=== PATIENT | female | born 1990 | race Caucasian/White ===

== ENCOUNTER → 2017-05-02 10:20 | Outpatient (CLI) | payer OTHER, SELFPAY ==
[2017-05-04 07:48] LABS: HPV Reflexed? NOT INDICATED
== END ==
PROVIDERS: Family Provider Family Medicine; PCP Family Medicine; Visit Provider Obstetrics & Gynecology
DX: Z12.4 Encounter for screening for malignant neoplasm of cervix (principal)
CPT/HCPCS: 88175; G0145

== ENCOUNTER → 2017-05-19 11:38 | Outpatient (CLI) | payer OTHER, SELFPAY ==
[2017-05-19 14:31] LABS: hCG Titer Quant., Serum 51 mIU/mL (<9 non-preg)
== END ==
PROVIDERS: Visit Provider Obstetrics & Gynecology
DX: O20.0 Threatened abortion (principal); Z32.01 Encounter for pregnancy test, result positive; Z3A.00 Weeks of gestation of pregnancy not specified
CPT/HCPCS: 36415; 84702

== ENCOUNTER → 2017-05-23 10:55 | Outpatient (CLI) | payer OTHER, SELFPAY ==
[2017-05-23 12:25] LABS: hCG Titer Quant., Serum 402 mIU/mL (<9 non-preg)
== END ==
PROVIDERS: Visit Provider Obstetrics & Gynecology
DX: O20.0 Threatened abortion (principal); Z32.01 Encounter for pregnancy test, result positive; Z3A.00 Weeks of gestation of pregnancy not specified
CPT/HCPCS: 36415; 84702

== ENCOUNTER → 2017-06-10 13:58 | Outpatient (CLI) | payer OTHER, SELFPAY ==
[2017-06-10 17:46] LABS: Chlamydia Trachomatis by PCR Negative (Negative); Neisserai gonorrhoeae by PCR Negative (Negative); Probe Check PASS; Sample Adequacy Control PASS; Specimen Processing Control PASS
== END ==
PROVIDERS: Visit Provider Obstetrics & Gynecology
DX: Z32.01 Encounter for pregnancy test, result positive (principal); Z11.3 Encounter for screening for infections with a predominantly sexual mode of transmission
CPT/HCPCS: 87491; 87591

== ENCOUNTER → 2017-06-22 16:10 | Outpatient (CLI) | payer OTHER, SELFPAY ==
[2017-06-22 17:46] LABS: Absolute Lymphocyte Count 0.99 X10^3/ul (0.83-4.51); Absolute Neutrophil Count 5.1 X10^3/uL (2.0-7.7); Basophil# 0.01 X10^3/uL; Basophil% 0.2 % (0-1); Eosinophil# 0.05 X10^3/uL; Eosinophils% 0.8 % (0-5); Hematocrit 35.5 % (37-47); Hemoglobin 11.3 g/dl (12.0-15.0); Lymphocyte # 0.99 X10^3/ul (4.0); Lymphocyte % 15.3 % (19-41); Mean Corp Hgb Conc 31.8 g/gl (32-36); Mean Corpuscular Hgb 26.7 pg (27.0-32.0); Mean Corpuscular Volume 83.9 fL (81-99); Mean Platelet Vol. 11.5 fl (6.2-12.0); Monocyte% 4.6 % (0-10); Neutrophil # 5.12 X10^3/uL (2.7-7.7); Neutrophil % 79.1 % (47-70); POSITIVE COUNT NO; POSITIVE DIFFERENTIAL NO; POSITIVE MORPHOLOGY NO; Platelet Count 210 K/mm3 (150-450); RBC Distribution Width CV 14.8 % (11.6-14.6); RBC Distribution Width SD 45.3 fl (35.1-43.9); Red Blood Count 4.23 M/mm3 (4.2-5.4); White Blood Count 6.5 K/mm3 (4.4-11.0)
[2017-06-22 17:50] LABS: Color, Urine Yellow (Yellow); Glucose, Dipstick Normal (Normal); Ketone-Dipstick Negative (Negative); Leukocyte Esterase-Dipstick Negative /ul (Negative); Nitrite-Dipstick Negative (Negative); Occult Blood-Urine Negative /ul (Negative); Protein-Dipstick Negative (Negative); Specific Gravity, Urine 1.015 (1.002-1.030); Urine Bilirubin Dipstick Negative (Negative); Urine Clarity Clear (Clear); Urine Urobilinogen Normal (Normal)
[2017-06-22 18:08] LABS: Amphetamine Urine VISTA NEGATIVE (<1000 ng/mL); Barbiturate Urine VISTA NEGATIVE (< 200 ng/mL); Benzodiazepine Urine VISTA NEGATIVE (< 200 ng/mL); Cocaine Urine VISTA NEGATIVE (< 300 ng/mL); Ecstacy Urine VISTA NEGATIVE (< 500 ng/mL); Methadone Urine VISTA NEGATIVE (< 300 ng/mL); PCP Urine VISTA NEGATIVE (< 25 ng/mL); THC Urine VISTA NEGATIVE (< 50 ng/mL); Thyroid Stim Hormone (TSH) 2.53 uIU/mL (0.358-3.74); Vista UDS pH Range 5
[2017-06-22 18:09] LABS: COTININE Drug Screen Negative (<200 ng/mL)
[2017-06-22 18:49] LABS: HIV - WCH Non-Reactive (Nonreactive); Rubella IgG 86.7 IU/mL
[2017-06-24 03:11] LABS: Prenatal RPR NONREACTIVE (NONREACTIVE)
[2017-06-24 09:09] LABS: HEPATITIS B SURFACE AG Negative (Negative); Hep C Antibodies <0.1 s/co ratio (0.0-0.9)
== END ==
PROVIDERS: Visit Provider Obstetrics & Gynecology
DX: Z34.81 Encounter for supervision of other normal pregnancy, first trimester (principal); Z3A.00 Weeks of gestation of pregnancy not specified
CPT/HCPCS: 36415; 80307; 81002; 84443; 85025; 86703; 86762; 86803; 87340

== ENCOUNTER 2017-08-05 06:54 | Outpatient (RCR) | payer OTHER, SELFPAY ==
--- NOTE | 2017-08-05 07:54 | HP.PTEVAL_ITS ---
Patient's Visit Information EMILEE GREEN is a 26 year old F referred to Physical Therapy by Camron Mendenhall with a diagnosis of vertigo. Date of Evaluation: 08/05/17 Physical Therapist: Pablo Storey DPT, OC - Visit Plan Frequency: 1x/Week Duration: 4-6 Weeks Plan: Treated with L Vanessa today. f/u in a week to recheck positional and progress to adaptation if needed. Monitor test results. - Subjective Subjective: I have vertigo. Not sure why. Diagnosed at ER 3 yrs ago but no real testing. Every couple months for 3 years get s lightheaded, nauseous and dizzy and blacks out for a couple minutes. No real pattern to it. It is more frequent now that she is 3-4 times per month. Has happened at work, doing laundry and once just lying down. Characterized as spinning and double vision and lightheadedness. OB(Dr. ordonez) sent to Dr Mendenhall who sent for PT. No real testing. Sleeping OK. Works at [employer] and is doing ok there. Home life is normal except when it happens and she takes it easy for a couple minutes. Hobbies: one year old girl. Has not come on when she is awake. No steps at home. No falls recently, can tell when it is coming on and can sit down. Last incident of blacking out 3 months ago, dizzyness is 3-4x per month and needs to sit down. - Objective L hallpike georgina slightly dizzy, R hallpike -, no nystagmus. Roll negative. treated with L Vanessa and post Avnessa instruction. Got dizzy again with R roll portion of treatment. Balance is good, slight dizzyness with horiz and vertical VOR walking but safe. Oculomotor: no nystagmus with gaze or head shake. - skew eye deviation. - head thrust. normal convergence. pursuit and saccades are nromal. VOR makes 5/10 dizzy for 25 seconds - Balance Scores Functional Gait Assessment Score: 30 % Disability: 0 CATSIB Score (Max score 120 seconds): 120 - Goals Goal 1:: Abolish dizzyness for period of 3 weeks. Goal Time Frame: 4-6 Weeks Goal 2:: Pt feel dizzyness abolished Goal Time Frame: 4-6 Weeks - Rehabilitation Potential Physical Therapy Diagnosis: questionable BPPV. Not obvious that this is a vestibualr problem, especially the blackouts, but possible and will treat as she is going through other testing. Rehabilitation Potential: Questionable - Anticipated Interventions Patient/Client Instruction: Educate patient on: Condition Other: to abolish dizzyness. Comment: adaptation and positional treatments as helpful. Other: to abolish dizzyness. Thank you for the opportunity to evaluate your patient. For Medicare and Medicare HMO plans, please review the plan of care and approve it. It will need to be FAXED BACK to us at [phone] for Medicare purposes. Please let me know if there are questions or concerns regarding this plan of care. Physician Signature: Date:
--- NOTE | 2017-11-10 12:33 | HP.PT.NRP ---
HP - Discharge Summary (1) - Patient Information EMILEE GREEN was seen in my office for initial evaluation on 08/05/17. The following Plan of Care was established for this patient: Initial Frequency: 1x/Week Initial Duration: 4-6 Weeks - Anticipated Interventions Patient/Client Instruction: Educate patient on: Condition Other: to abolish dizzyness. Other: to abolish dizzyness. This patient was last seen in our office 08/05/17. Pertinent comments regarding their Physical therapy will appear below: Pt seen for evaluation and positional treatment. Plan of care established but patient did not attend any further visits. I will discontinue at this time as it has been 3 months. At this point I will be discontinuing this patient from physical therapy. I would be happy to see this patient again in the future if found appropriate by the physician. Thank you! Pablo Storey, DPT, OC
== END 2017-08-05 19:00 | disposition home or self-care (01) ==
LOC: PT 06:54
PROVIDERS: Family Provider Family Medicine; PCP Family Medicine; Visit Provider Psychiatry & Neurology Neurology
DX: R42 Dizziness and giddiness (principal)
CPT/HCPCS: 97162

== ENCOUNTER → 2017-09-12 15:03 | Outpatient (CLI) | payer OTHER, SELFPAY ==
--- NOTE | 2017-09-12 15:03 | DT_ITS ---
This patient was seen during an EMR downtime September 05, 2017 - September 12, 2017. This patient may have a combination of paper and electronic documentation or all paper documentation. All documentation is viewable within the e-chart portion of [employer] for each patient visit.
== END ==
PROVIDERS: Visit Provider Obstetrics & Gynecology
DX: O23.42 Unspecified infection of urinary tract in pregnancy, second trimester (principal); Z3A.00 Weeks of gestation of pregnancy not specified
CPT/HCPCS: 87086; 87088

== ENCOUNTER → 2017-11-03 10:11 | Outpatient (CLI) | payer OTHER, SELFPAY ==
[2017-11-03 10:52] LABS: Hematocrit 31.8 % (37-47); Hemoglobin 10.5 g/dl (12.0-15.0); Mean Corpuscular Hgb 29.2 pg (27.0-32.0); Mean Corpuscular Volume 88.6 fL (81-99); Platelet Count 184 K/mm3 (150-450); RBC Distribution Width CV 15.1 % (11.6-14.6); RBC Distribution Width SD 48.4 fl (35.1-43.9); Red Blood Count 3.59 M/mm3 (4.2-5.4); White Blood Count 6.2 K/mm3 (4.4-11.0)
[2017-11-03 10:58] LABS: Glucose Challenge Gest 1H 50g 82 mg/dL (70-140)
[2017-11-03 10:59] LABS: Scan Indicated on CBC? Y/N NO
== END ==
PROVIDERS: Visit Provider Obstetrics & Gynecology
DX: Z34.83 Encounter for supervision of other normal pregnancy, third trimester (principal)
CPT/HCPCS: 36415; 82950; 85027; 86850

== ENCOUNTER 2017-12-11 11:05 | Outpatient (CLI) | payer OTHER, SELFPAY ==
[2017-12-11 11:39] VITALS: BMI 38.5
[2017-12-11 11:42] LABS: Bacteria 0 SEEN /hpf (None Seen); Mucous, Urine 0 SEEN /hpf (<or=2+); Red Blood Cells-Urine 0 SEEN /hpf (0-5); White Blood Cells 0 SEEN /hpf (0-5)
[2017-12-11 11:47] LABS: Color, Urine Yellow (Yellow); Glucose, Dipstick Normal (Normal); Ketone-Dipstick Negative (Negative); Leukocyte Esterase-Dipstick 25 /ul (Negative); Nitrite-Dipstick Negative (Negative); Occult Blood-Urine Negative /ul (Negative); Protein-Dipstick Negative (Negative); Specific Gravity, Urine 1.015 (1.002-1.030); Urine Bilirubin Dipstick Negative (Negative); Urine Clarity Sl. Cloudy (Clear); Urine Urobilinogen Normal (Normal); Urine pH 6.5 (5.0 - 8.0)
[2017-12-11 11:53] LABS: Squamous Epithelial Cells - UA 0-5 SEEN /hpf (5-10)
--- NOTE | 2017-12-12 07:24 | OB.TRI.NOTE ---
History of Present Illness Date of Service: 12/11/17 Was patient seen by the physician?: No Reason For Visit: RULE OUT LABOR Date of Service: 12/11/17 Final ELMER: 01/28/18 Final ELMER Source: LMP Gestational age: 33 Weeks and 2 Days History of Present Illness: Reports back and pelvic pain. No signs of PPROM. No bleeding or contraction pain. Allergies No Known Allergies Allergy (Verified 10/24/17 15:21) - Pertinent Past Medical History Medical History: Past Medical History (Last Updated 10/24/17 @ 15:25 by Ale Boone) Asthma Migraines SOB (shortness of breath) Weight loss Surgical History: Past Surgical History (Last Updated 10/24/17 @ 15:25 by Ale Boone) Hx of hand surgery Physical Exam General: Alert, Oriented x3, Cooperative, No apparent distress Abdomen: Soft, Non Tender, Non-Distended, Gravid, Appropriate for Gestational Age Extremities:: No edema Neurological: Neuro grossly intact LIEUTENANT GENERAL: Normal external genitalia Estimated gestational size: Appropriate for gestational size Presentation: Cephalic NST - FHR Rate Baby A Baseline: 130s Variability:: Moderate Accelerations:: 15 x 15 Decelerations:: None NST Reactive:: Yes, Appropriate for gestational age FHR Category:: Category I Uterine Activity:: none Impression/Plan No findings to suggest labor. FFN negative. UA negative. Reassuring FHR tracing. f/u in office.
== END 2017-12-11 12:15 | disposition home or self-care (01) ==
LOC: WPOUT 11:19 → WP 11:20
PROVIDERS: Family Provider Family Medicine; PCP Family Medicine; Visit Provider Obstetrics & Gynecology
DX: Z34.93 Encounter for supervision of normal pregnancy, unspecified, third trimester (principal); R10.2 Pelvic and perineal pain; M54.9 Dorsalgia, unspecified; Z3A.33 33 weeks gestation of pregnancy
CPT/HCPCS: 59025; 59050; 81001; 99218; G0378

== ENCOUNTER → 2017-12-27 14:34 | Outpatient (CLI) | payer OTHER, SELFPAY | PROVIDERS: Family Provider Family Medicine; PCP Family Medicine; Referring Provider Physician Assistant Surgical; Visit Provider Physician Assistant Surgical | DX: J02.9 Acute pharyngitis, unspecified (principal) | CPT/HCPCS: 87081 ==

== ENCOUNTER → 2017-12-30 13:01 | Outpatient (CLI) | payer OTHER, SELFPAY ==
[2017-12-30 14:45] LABS: Group B Strep DNA By PCR Negative (Negative); Internal Control PASS; Probe Check PASS; Specimen Processing Control PASS
== END ==
PROVIDERS: Visit Provider Obstetrics & Gynecology
DX: Z36.85 Encounter for antenatal screening for Streptococcus B (principal)
CPT/HCPCS: 87081; 87653

== ENCOUNTER 2018-01-20 10:00 | Inpatient (IN) | payer OTHER, SELFPAY ==
[2018-01-19 08:59] VITALS: BMI 40.2
[2018-01-19 10:02] LABS: Prothrombin Time (Protime)PT. 13.2 SECONDS (11.7-14.9)
[2018-01-19 10:11] LABS: Absolute Lymphocyte Count 1.19 X10^3/ul (0.83-4.51); Absolute Neutrophil Count 3.6 X10^3/uL (2.0-7.7); Basophil# 0.01 X10^3/uL; Basophil% 0.2 % (0-1); Eosinophil# 0.04 X10^3/uL; Eosinophils% 0.8 % (0-5); Hematocrit 34.3 % (37-47); Hemoglobin 11.6 g/dl (12.0-15.0); Lymphocyte # 1.19 X10^3/ul (4.0); Lymphocyte % 23.4 % (19-41); Mean Corp Hgb Conc 33.8 g/gl (32-36); Mean Corpuscular Hgb 30.4 pg (27.0-32.0); Mean Corpuscular Volume 89.8 fL (81-99); Mean Platelet Vol. 11.9 fl (6.2-12.0); Monocyte# 0.29 X10^3/uL; Monocyte% 5.7 % (0-10); Neutrophil # 3.55 X10^3/uL (2.7-7.7); Neutrophil % 69.7 % (47-70); Platelet Count 127 K/mm3 (150-450); RBC Distribution Width CV 15.3 % (11.6-14.6); RBC Distribution Width SD 49.6 fl (35.1-43.9); Red Blood Count 3.82 M/mm3 (4.2-5.4); White Blood Count 5.1 K/mm3 (4.4-11.0)
[2018-01-19 10:14] LABS: POSITIVE COUNT NO; POSITIVE DIFFERENTIAL NO; POSITIVE MORPHOLOGY NO
[2018-01-20] VITALS (26 sets, daily range): BP systolic 100–146; BP diastolic 48–94; PULSE 66–110; RESP 16–20; TEMP 36.1–36.9; O2SAT 95–99; BMI 40.6
[2018-01-20] MEDS: Lactated Ringers 1,000 ML 999 ML IV (10:20)
[2018-01-20] MEDS: Lactated Ringers 1,000 ML 150 ML IV (10:58)
[2018-01-20] MEDS: Cefazolin 2 GM in 0.9% Normal Saline 100 ML IV (11:52)
[2018-01-20] MEDS: Sodium Citrate/Citric Acid 30 ML UDC PO (11:52)
--- NOTE | 2018-01-20 12:07 | DCINST_ITS ---
Discharge Diet: No Restrictions Discharge Activity: Return to Normal Activity, May Not Drive, May not drive while taking narcotic pain medications., May Shower Return to work on:: 03/20/18 May resume sexual activity in: 4-6 weeks Call your doctor if your incision/area has: Sudden Increased Bleeding, Increased Pain/ Swelling, Increased Redness, Foul Smelling Discharge, Swelling at the incision site Call your doctor if you observe: Fever of 101 or Higher, Inability to urinate, Inability to have a bowel movement, Using more than one pad per hour, Shortness of breath, Chest pain, Calf discomfort, Uncontrolled pain Remove Dressing in (days):: 2 Cleanse incision/area with: Soap & Water Additional Instructions: If you experience any of the following, contact your healthcare provider. * Bleeding that soaks a pad every hour for 2 hours * Fever 100.4 or higher * Unrelieved incision or abdominal pain * Swelling, redness, discharge or bleeding from your incision or episiotomy site * Your incision begins to separate * Problems urinating (including inability to urinate or burning while urinating). * Visual changes * Severe headache * Flu-like symptoms * Pain or redness in one of both of your breasts * Pain, warmth, tenderness or swelling in your legs, especially the calf area * Frequent nausea and vomiting * Symptoms of depression or anxiety If you experience any of the following, call 911 or go to the nearest Emergency Room. * Chest pain * Problems breathing * Seizure activity * Partial or complete paralysis of a body part, slurred speech, weakness or drooping of the face, or a sudden inability to walk or hold your balance Allergies/Adverse Reactions: Allergies No Known Allergies Allergy (Verified 12/27/17 11:20) Medications to take at Discharge Vits [Prenatabs FA ] 1 tab PO DAILY 09/25/15 docusate sodium 100 mg capsule 100 mg PO BID 30 Days #60 10/24/17 linaclotide 145 mcg capsule 145 mcg PO DAILY 10/24/17 Sertraline HCl [Zoloft] 50 mg PO DAILY 12/11/17 Ferrous Gluconate 325 mg PO DAILY@0800 01/19/18 Ibuprofen 600 mg PO Q6H PRN PRN #30 tab 01/20/18 Oxycodone [Oxyir] 5 - 10 mg PO Q4H PRN PRN 7 Days #28 tab 01/20/18 The following prescriptions were given: Oxycodone [Oxyir] 5 - 10 mg PO Q4H PRN PRN 7 Days #28 tab PRN Reason: Mod-Severe Pain (4-01/11) Ibuprofen 600 mg PO Q6H PRN PRN #30 tab PRN Reason: pain or cramping Follow-Up: Call to make an appointment with your doctor for an incision check in 1-2 weeks. You will also need a 6 week post- follow up appointment. Test results from this visit will be discussed in further detail at your follow- up appointment, if applicable. Please Follow Up With: Raghu Gomez MD When: one week Proposed Discharge Date: 01/22/18
--- NOTE | 2018-01-20 12:07 | PCM.OPRPT ---
Problem List (1) Previous section Status: Chronic Report of Operation Date of Procedure: 01/20/18 Pre-Operative Diagnosis: Previous Section Post-Operative Diagnosis: Same Surgery/Procedure Performed:: Repeat Low Transverse Section Description of Surgical Findings:: Normal appearing uterus, ovaries, and fallopian tubes. Live female weighing 8lb6oz. APGARs 9/9. Minimal scarring present. final finisher forging dies: Ronal Carter Type of Anesthesia:: Spinal Anesthesiologist: Frank Lim Special Medications: none Specimen's removed: cord blood for typing Drains: kerns Estimated Blood Loss (mL): 600cc Fluids Replaced: 1500cc LR Description of Procedure: Cristy was taken to the OR with IV running. She was given two grams of Ancef intravenously for surgical prophylaxis. SCDs were in place and operational throuhout the case. Spinal anesthesia was introduced without complication. A kerns catheter was placed. She was then prepped and draped in the supine position with a leftward tilt. Once anesthesia was deemed adequate a Phanneseil incision was made through the previous scar. The underlying subcutaneous tissue was dissected down to the level of fascia with sharp and blunt dissection. The fascia was then incised horizontally in the midline. This incision was entered bilaterally using the Acosta scissors. The upper portion of the fascial defect was then grasped with two Elfego clamps elevated and the underlying rectus muscles dissected off with blunt and sharp dissection. The rectus muscles were dissected off the lower fascial defect in a similar fashion. The rectus muscles were then in the midline, the peritoneum identified and entered sharply. This defect was enlarged using blunt retraction. A bladder blade was then placed. A bladder flap was created using sharp and blunt dissection. The bladder blade was replaced. A transverse incision was then made in the lower uterine segment and once the cavity was entered the uterine defect was extended using blunt lateral and superior traction. The baby's head was then delivered atraumatically followed by the body. The nose and mouth were suctioned with a bulb suction. Delayed cord clamping was employed. There was an active cry within one minute of delivery. The cord was then clamped and cut. The baby was then handed off to the waiting nurse for evaluation. The placenta was then delivered manually, the uterus exteriorized, and cleared of all clot and membranes. The uterine defect was then closed in two layes with #1 Vicryl suture. The posterior cul de sac was cleared of all clot and fluid. The uterus returned to the abdomen. The uterine incision was inspected and found to be hemostatic. The gutters were then cleared of all clot and fluid. The peritoneum was closed with 2-0 Vicryl. The rectus muscles were reapproximated with 0-Vicryl. The fascia was closed with a running stitch of #1 Stratofix suture. The subcutaneous tissue was closed with a running stitch of 2-0 Vicryl. The skin was closed with a running stitch of 4-0 Monocryl. Sponge, lap, needle, and instrument counts were correct. She was taken to the recovery room in stable condition. Grafts/Implants Used: Julee - Complications none - Admit VTE Documentation VTE Present on Admission: No VTE Mechan Device Prophylaxis: SCD's VTE Pharm Prophylaxis ordered?: No
--- NOTE | 2018-01-20 12:18 | OP.PCM_ITS ---
- Problem List (1) Previous section Status: Chronic Delivery Classification: Scheduled Final ELMER: 01/27/18 Final ELMER Source: US <20 weeks Gestational age: 39 Weeks and 0 Days Indications for : Repeat Elective Description of Procedure: Normal appearing uterus, ovaries, and fallopian tubes. Delivery of a live female , APGARs 9/9. weight 8lb6oz. Minimal scarring present. Amniotic Membrane Rupture Type: Artificial Amniotic Fluid Description: Clear Specimen(s) sent to pathology: cord blood for typing Drain: Leon to straight drain Fluids Replaced: 1500cc LR Cord Entanglement: None Nuchal Cord Compression: Without compression Cord Vessel Description: 3 Vessels Esitmated Blood Loss (ml): 600cc Gender: Female (1 minute): 9 (5 minute): 9 Pre-op Antibiotic Given: Ancef 2 grams IV x1 Pt instructed on risks of surgery: Bleeding, Infection, Need for Future C- Sections, Injury to surrounding structure(s) including bowel and bladder Complications: None - Admit VTE Documentation VTE Present on Admission: No VTE Mechan Device Prophylaxis: SCD's VTE Pharm Prophylaxis ordered?: No
[2018-01-20] MEDS: Oxytocin 30 units/NS 500 ml 30 UNITS/500 ML IV.SOLN 167 UNITS IV (12:35)
[2018-01-20] MEDS: Ketorolac 30 MG/ML Syringe IV ×2 (13:08→18:06)
[2018-01-20] MEDS: Ondansetron 4 MG/2 ML Vial IV (14:02)
[2018-01-20] MEDS: Lactated Ringers 1,000 ML 100 ML IV ×2 (14:09→19:46)
[2018-01-20] MEDS: proMETHazine 25 MG/ML Syringe 12.5 MG IV (15:41)
[2018-01-20] MEDS: Nalbuphine 10 MG/ML Ampul 5 MG IV (16:20)
[2018-01-20] MEDS: Cefazolin 1 GM/50 ML BAG IV (19:46)
--- NOTE | 2018-01-20 21:26 | NURSING ---
pt up to restroom without difficulty. a few egg sized clots noted to peripad. pericare and pad change. pt returned to bed without difficulty. once in bed pt appeared pale. fundus noted to be 1 finger breadth above umbilicus and small gush of bright red lochia noted upon fundal assessment. vital signs obtained (see vital sign intervention) HR ranged from 90's to 117. peripad from 1929 and 2119 weighted for 354ml. pt drank some ice tea and reported feeling better. pt now appears pink and is asymptomatic. fob present and supportive. will continue to monitor
[2018-01-20] MEDS: miSOPROStol 200 MCG Tablet 400 MCG RECTAL (22:18)
[2018-01-20] MEDS: Oxytocin 30 units/NS 500 ml 30 UNITS/500 ML IV.SOLN 100 UNITS IV (22:19)
[2018-01-20] MEDS: Methylergonovine 0.2 MG/ML Ampul IM (22:56)
--- NOTE | 2018-01-20 23:04 | PCM.PN.OB ---
Subjective: Called to see patient regarding increased vaginal bleeding. Specifically, the patient has lost approximately 750 cc of clots over the last 2 hours. Abdomen is soft and nontender without any evidence of distention. Urine output is adequate but marginal. Heart rate is in the 80s and 90s and blood pressures for the most part are normal with a single blood pressure of approximately 100/60. Patient was given a Pitocin bolus in the last hour and Cytotec 400 mg rectally was given about an hour ago as well. She then passed the some clot which is included in the 750 cc calculation above. Upon presentation to the patient's room, the patient was noted to be laying on her back and no vaginal bleeding was noted. Uterine fundus palpated to 2 cm below the umbilicus and was firm. Given this, will continue Cytotec 400 mg rectally every 4 hours and continue a Pitocin drip overnight. A single dose of Methergine was given and will repeat as needed over the next 6 hours. If this is inadequate we will move to Hemabate. Given the current blood loss is only 750 cc, will hold off checking a hemoglobin until the morning unless bleeding continues. Will start a second IV line and if bleeding increases will need to order a type and cross for 2 units of packed red blood cells. Otherwise, continue to monitor closely. Will maintain IV fluids at a total of 150 cc/h. Will hold a.m. Toradol due to urine output being slightly low. Anticipate being able to resume this in the morning. - Physical Exam Vital Signs Temp Pulse Resp BP Pulse Ox 97.1 F L 110 H 16 108/66 97 01/20/18 21:26 01/20/18 22:26 01/20/18 22:26 01/20/18 22:21 01/20/18 22:26 Oxygen Delivery Method Room Air Weight: 244 lb 7.882 oz Body Mass Index (BMI) 40.6 Intake and Output for Last 24 Hours 01/18/18 01/19/18 01/20/18 23:59 23:59 23:59 Intake Total 1800 / 1800 Output Total 1550 / 1550 Balance 250 / 250 Laboratory Tests Past 24 Hrs 01/20/18 18:10 Screen NEGATIVE Baby's Blood Type O POSITIVE Baby's ERIK NEGATIVE Medical Necessity - Tobacco Use Smoking Status: Former smoker Assessment/Plan All Active Problems (Last Reviewed 12/27/17 @ 11:21 by Romina Liu) Pharyngitis, acute (Acute) Sinusitis, acute (Acute)
--- NOTE | 2018-01-20 23:13 | NURSING ---
2234 RN in room, pt reported feeling a gush of blood, fundus assessed, noted to be 1 fingerbreath above umbilius and firm, expressed large clots and continuous trickle of rubra lochia noted 2236 mold dumper called 2237 discharge door operator into room, peripads changed and weighted for a total of 901ml 2240 called and updated, on way to unit 2249 in room, assessed pt, new orders received for IM methergine now and to run pitocin at 50ml/hr over night, to start another IV line, and to give 400mg rectal cytotec Q 4 hours x3 doses 225 methergine to right thigh 230 out of room, remains on unit 2311 back in room, assessed pt 2312 out of room, off unit 2319 20 G IV started to right AC 2321 peripad totals added for a total EBL since 1929 1255, called and updated, new orders received for H & H 2325 fundus boggy, firm with massage, saturated peripad, called and updated. new orders to type and cross 2 units and to give IM Hemabate 2329 Hemabate given to left thigh 2338 peripad and green bed pad changed = 260ml for a total of 1515 since 1929
[2018-01-20] MEDS: 0.9% Saline Lock 10 ML Syringe IV (23:20)
[2018-01-20] MEDS: Carboprost Tromethamine 250 MCG/ML Ampul IM (23:29)
[2018-01-21] VITALS (16 sets, daily range): BP systolic 104–141; BP diastolic 66–87; PULSE 80–101; RESP 16–18; TEMP 36.2–37.1; O2SAT 97–100
[2018-01-21 00:18] LABS: Hematocrit 25.8 % (37-47); Hemoglobin 8.7 g/dl (12.0-15.0); Mean Corp Hgb Conc 33.7 g/gl (32-36); Mean Corpuscular Hgb 30.7 pg (27.0-32.0); Mean Corpuscular Volume 91.2 fL (81-99); Mean Platelet Vol. 12.3 fl (6.2-12.0); Platelet Count 107 K/mm3 (150-450); RBC Distribution Width CV 15.6 % (11.6-14.6); RBC Distribution Width SD 51.2 fl (35.1-43.9); Red Blood Count 2.83 M/mm3 (4.2-5.4); White Blood Count 11.3 K/mm3 (4.4-11.0)
[2018-01-21 00:19] LABS: Scan Indicated on CBC? Y/N NO
--- NOTE | 2018-01-21 00:45 | NURSING ---
0045 pericare and pad change. peripad weighed=68ml
[2018-01-21] MEDS: Oxytocin 30 units/NS 500 ml 30 UNITS/500 ML IV.SOLN 50 UNITS IV (01:03)
[2018-01-21] MEDS: miSOPROStol 200 MCG Tablet 400 MCG RECTAL ×3 (02:03→11:40)
--- NOTE | 2018-01-21 02:14 | NURSING ---
0200 pericare and pad change. pad weighs 34ml
--- NOTE | 2018-01-21 02:15 | NURSING ---
from [id number] during hemorrhage and recovery, pt remained awake alert and oriented
[2018-01-21] MEDS: Cefazolin 1 GM/50 ML BAG IV (03:55)
[2018-01-21] MEDS: Lactated Ringers 1,000 ML 100 ML IV (05:37)
[2018-01-21 06:07] LABS: Hematocrit 22.6 % (37-47); Hemoglobin 7.6 g/dl (12.0-15.0); Mean Corp Hgb Conc 33.6 g/gl (32-36); Mean Corpuscular Hgb 30.9 pg (27.0-32.0); Mean Corpuscular Volume 91.9 fL (81-99); Mean Platelet Vol. 11.3 fl (6.2-12.0); Platelet Count 88 K/mm3 (150-450); RBC Distribution Width CV 15.3 % (11.6-14.6); RBC Distribution Width SD 49.2 fl (35.1-43.9); Red Blood Count 2.46 M/mm3 (4.2-5.4); Scan Indicated on CBC? Y/N NO; White Blood Count 9.4 K/mm3 (4.4-11.0)
--- NOTE | 2018-01-21 09:57 | PCM.PN.OB ---
Subjective: Patient without complaint. Tolerating diet well. Denies orthostatic changes. Pain well controlled. Minimal vaginal bleeding now. - Physical Exam Vital Signs AF, VSS Temp Pulse Resp BP Pulse Ox 98.3 F 90 16 104/66 100 01/21/18 08:37 01/21/18 08:37 01/21/18 08:37 01/21/18 08:37 01/21/18 08:37 Oxygen Delivery Method Nasal Cannula Weight: 244 lb 7.882 oz Body Mass Index (BMI) 40.6 Intake and Output for Last 24 Hours 01/19/18 01/20/18 01/21/18 23:59 23:59 23:59 Intake Total 1800 / 1800 3866 / 3866 Output Total 1550 / 1550 1370 / 1370 Balance 250 / 250 2496 / 2496 Laboratory Tests Past 24 Hrs 01/19/18 01/20/18 01/20/18 09:40 18:10 23:20 WBC 11.3 H RBC 2.83 L Hgb 8.7 L Hct 25.8 L MCV 91.2 MCH 30.7 MCHC 33.7 RDW 15.6 H RDW Differential 51.2 H Plt Count 107 L MPV 12.3 H Screen NEGATIVE Baby's Blood Type O POSITIVE Baby's ERIK NEGATIVE Crossmatch See Detail 01/21/18 05:50 WBC 9.4 RBC 2.46 L Hgb 7.6 L Hct 22.6 L MCV 91.9 MCH 30.9 MCHC 33.6 RDW 15.3 H RDW Differential 49.2 H Plt Count 88 L MPV 11.3 Screen Baby's Blood Type Baby's ERIK Crossmatch Wound is clean, dry, intact. Excellent urine output. Hemoglobin okay and as expected after postoperative hemorrhage last evening for uterine atony. Medical Necessity - Tobacco Use Smoking Status: Former smoker Assessment/Plan All Active Problems (Last Reviewed 12/27/17 @ 11:21 by Romina Liu) Pharyngitis, acute (Acute) Sinusitis, acute (Acute) Doing well postoperative day #1 status post repeat followed by post operative hemorrhage for uterine atony. Continuing to follow closely. Will discontinue 1 of her IVs and Leon catheter this a.m. Other IV to saline lock. Will repeat CBC tomorrow to confirm stable.
[2018-01-21] MEDS: Linacolotide 145 MCG CAPSULE PO (11:39)
[2018-01-21] MEDS: Sertraline 50 MG Tablet PO (11:40)
[2018-01-21] MEDS: Ferrous Gluconate 324 MG Tablet 325 MG PO (11:40)
[2018-01-21] MEDS: Docusate Sodium 100 MG Capsule PO (11:43)
[2018-01-21] MEDS: 0.9% Saline Lock 10 ML Syringe IV (11:43)
[2018-01-21] MEDS: oxyCODONE 5 MG Tablet PO ×3 (13:52→22:12)
[2018-01-21] MEDS: Acetaminophen 500 MG Tablet 1000 MG PO (16:17)
[2018-01-22 02:00] VITALS: BP 141/89; PULSE 93; RESP 18; TEMP 36.2; O2SAT 100
[2018-01-22] MEDS: Acetaminophen 500 MG Tablet 1000 MG PO ×2 (02:01→11:50)
[2018-01-22] MEDS: oxyCODONE 5 MG Tablet PO ×3 (03:09→09:47)
[2018-01-22] MEDS: 0.9% Saline Lock 10 ML Syringe IV (03:10)
[2018-01-22 05:32] LABS: Absolute Lymphocyte Count 1.16 X10^3/ul (0.83-4.51); Absolute Neutrophil Count 6.2 X10^3/uL (2.0-7.7); Basophil# 0.01 X10^3/uL; Basophil% 0.1 % (0-1); Eosinophil# 0.03 X10^3/uL; Eosinophils% 0.4 % (0-5); Hematocrit 21.9 % (37-47); Hemoglobin 7.4 g/dl (12.0-15.0); Lymphocyte # 1.16 X10^3/ul (4.0); Lymphocyte % 14.8 % (19-41); Mean Corp Hgb Conc 33.8 g/gl (32-36); Mean Corpuscular Hgb 31.5 pg (27.0-32.0); Mean Corpuscular Volume 93.2 fL (81-99); Mean Platelet Vol. 11.1 fl (6.2-12.0); Monocyte# 0.42 X10^3/uL; Monocyte% 5.3 % (0-10); Neutrophil # 6.22 X10^3/uL (2.7-7.7); Neutrophil % 79.1 % (47-70); Platelet Count 107 K/mm3 (150-450); RBC Distribution Width CV 15.3 % (11.6-14.6); RBC Distribution Width SD 49.7 fl (35.1-43.9); Red Blood Count 2.35 M/mm3 (4.2-5.4); White Blood Count 7.9 K/mm3 (4.4-11.0)
[2018-01-22 06:07] LABS: POSITIVE COUNT NO; POSITIVE DIFFERENTIAL NO; POSITIVE MORPHOLOGY NO
--- NOTE | 2018-01-22 06:51 | NURSING ---
pt called RN into room. As this nurse entered room, pt was standing in restroom and reported passing a large blood clot when urinating. a tennis ball sized dark red clot noted in bottom of toilet. pt asymptomatic and returned to bed. fundus firm and 2 fingerbreadths below umbilicus, lochia small
[2018-01-22] MEDS: Prenatal Vits Tablet 1 TABLET PO (09:27)
[2018-01-22] MEDS: Sertraline 50 MG Tablet PO (09:27)
[2018-01-22] MEDS: Linacolotide 145 MCG CAPSULE PO (09:27)
[2018-01-22] MEDS: Docusate Sodium 100 MG Capsule PO (09:27)
[2018-01-22] MEDS: Ferrous Gluconate 324 MG Tablet 325 MG PO (09:28)
[2018-01-22 09:30] VITALS: BP 127/80; PULSE 100; RESP 16; TEMP 36.3; O2SAT 100
--- NOTE | 2018-01-22 11:31 | PN.OBGYN_ITS ---
Subjective: Patient without complaints. Tolerating diet well. Positive flatus. Denies orthostatic changes when up and about. Ready to go home. - Physical Exam Vital Signs AF, VSS Temp Pulse Resp BP Pulse Ox 97.4 F L 100 16 127/80 H 100 01/22/18 09:30 01/22/18 09:30 01/22/18 09:30 01/22/18 09:30 01/22/18 09:30 Oxygen Delivery Method Room Air Weight: 244 lb 7.882 oz Body Mass Index (BMI) 40.6 Intake and Output for Last 24 Hours 01/20/18 01/21/18 01/22/18 23:59 23:59 23:59 Intake Total 1800 / 1800 4465 / 4465 Output Total 1550 / 1550 2170 / 2170 Balance 250 / 250 2295 / 2295 Laboratory Tests Past 24 Hrs 01/22/18 05:25 WBC 7.9 RBC 2.35 L Hgb 7.4 L Hct 21.9 L MCV 93.2 MCH 31.5 MCHC 33.8 RDW 15.3 H RDW Differential 49.7 H Plt Count 107 L MPV 11.1 Immature Gran % (Auto) 0.300 Neut % (Auto) 79.1 H Lymph % (Auto) 14.8 L [place] % (Auto) 5.3 Eos % (Auto) 0.4 Baso % (Auto) 0.1 Absolute Neuts (auto) 6.2 Absolute Lymphs (auto) 1.16 Total Counted Not Reportable Wound is clean, dry, intact. Good urine output. Minimal vaginal bleeding. Hemoglobin stable. Platelet count increasing. Medical Necessity - Tobacco Use Smoking Status: Former smoker Assessment/Plan All Active Problems (Last Reviewed 12/27/17 @ 11:21 by Romina Liu) Pharyngitis, acute (Acute) Sinusitis, acute (Acute) Doing well postoperative day #3 status post hemorrhage for uterine atony. Will release to home with routine instructions.
--- NOTE | 2018-01-22 11:37 | DS.PCM_ITS ---
Discharge Summary Date of Admission: 01/19/18 Date of Discharge: 01/22/18 Summary: Procedure: Repeat low transverse cervical section HPI: Uneventful care. PE: Unremarkable. Hospital Course: The patient is a 27 year old who presented to [facility] at 39+ weeks gestation for repeat . Postoperatively she did well except for an episode of hemorrhage on postoperative day 0 due to uterine atony. IV Pitocin, IM Methergine and Hemabate were given to alleviate this problem. Patient's hemoglobin stabilized in the mid sevens with platelet count of approximately 88,000. She remained stable and demonstrated a stable HGB of 7.1 and platelet count just over 100,000 as well as bowel function on POD 3 at which time it was felt she was ready for discharge. She denied any orthostatic changes or symptoms at the time of discharge. Homegoing Instruction: She was instructed not to drive for several days or if using narcotic pain medication, not to put anything in the vagina for 4 weeks, not to lift >25 lbs for 6 weeks and to call the office for an appointment in 2 weeks and 6 weeks. Discharge Medications: She was given a prescription for Oxycodone and Colace and also plans to use Aleve or Motrin or Tylenol at home as needed for pain and constipation. She was also instructed to use iron at home for at least 6 weeks to recover her blood counts. - Physical Exam Vital Signs Temp Pulse Resp BP Pulse Ox 97.4 F L 100 16 127/80 H 100 01/22/18 09:30 01/22/18 09:30 01/22/18 09:30 01/22/18 09:30 01/22/18 09:30 Oxygen Delivery Method Room Air Weight: 244 lb 7.882 oz Body Mass Index (BMI) 40.6 Intake and Output for Last 24 Hours 01/20/18 01/21/18 01/22/18 23:59 23:59 23:59 Intake Total 1800 / 1800 4465 / 4465 Output Total 1550 / 1550 2170 / 2170 Balance 250 / 250 2295 / 2295 Laboratory Tests Past 24 Hrs 01/22/18 05:25 WBC 7.9 RBC 2.35 L Hgb 7.4 L Hct 21.9 L MCV 93.2 MCH 31.5 MCHC 33.8 RDW 15.3 H RDW Differential 49.7 H Plt Count 107 L MPV 11.1 Immature Gran % (Auto) 0.300 Neut % (Auto) 79.1 H Lymph % (Auto) 14.8 L [place] % (Auto) 5.3 Eos % (Auto) 0.4 Baso % (Auto) 0.1 Absolute Neuts (auto) 6.2 Absolute Lymphs (auto) 1.16 Total Counted Not Reportable
[2018-01-22 12:20] VITALS: BP 125/83; PULSE 99; RESP 16; TEMP 36.6; O2SAT 99
== END 2018-01-22 13:20 | disposition home or self-care (01) | DRG 787 ==
LOC: WP 10:05
PROVIDERS: Obstetrics & Gynecology; Admitting Provider Obstetrics & Gynecology; Referring Provider Obstetrics & Gynecology; Visit Provider Obstetrics & Gynecology
PROC: 10D00Z1 Extraction of Products of Conception, Low, Open Approach (ICD-10-PCS; CPT 59514; principal; 2018-01-20 11:45)
DX: O34.219 Maternal care for unspecified type scar from previous cesarean delivery (principal); O72.1 Other immediate postpartum hemorrhage; O99.62 Diseases of the digestive system complicating childbirth; K58.9 Irritable bowel syndrome, unspecified; O99.344 Other mental disorders complicating childbirth; F32.9 Major depressive disorder, single episode, unspecified; Z79.899 Other long term (current) drug therapy; Z87.891 Personal history of nicotine dependence; Z3A.39 39 weeks gestation of pregnancy; Z37.0 Single live birth
CPT/HCPCS: 85025; 85027; 85461; 85610; 85730; 86850; 86900; 86920; 90384; 99218; J7120; A4216; G0378; J2405; J2790

== ENCOUNTER → 2018-03-15 18:39 | Outpatient (CLI) | payer OTHER, SELFPAY ==
[2018-03-15 22:19] LABS: Chlamydia Trachomatis by PCR Negative (Negative); Neisserai gonorrhoeae by PCR Negative (Negative); Probe Check PASS; Sample Adequacy Control PASS; Specimen Processing Control PASS
--- OUTSIDE RECORDS SUMMARY | 2018-05-01 22:34 | XMS RPT_ITS ---
:1990 Author Organization OHIP Support Name Relationship Address Phone SANCHEZ WAGGONER Unavailable [address] + [place] [address] KEVIN GREEN Unavailable [address] + [place] [address] UE Unavailable Unavailable Unavailable WAGGONERSANCHEZ Unavailable [address] + [place] [address] KEVIN GREEN Unavailable [address] + [place] [address] UE Unavailable Unavailable Unavailable WAGGONERSANCHEZ Unavailable [address] + [place] [address] KEVIN GREEN Unavailable [address] + [place] [address] UE Unavailable Unavailable Unavailable WAGGONERSANCHEZ Unavailable [address] + [place] [address] KEVIN GREEN Unavailable [address] + [place] [address] UE Unavailable Unavailable Unavailable SANCHEZ WAGGONER Unavailable [address] + [place] [address] KEVIN GREEN Unavailable [address] + [place] [address] UE Unavailable Unavailable Unavailable WAGGONERSANCHEZ Unavailable [address] + [place] [address] KEVIN GREEN Unavailable [address] + [place] [address] UE Unavailable Unavailable Unavailable SANCHEZ WAGGONER Unavailable [address] + [place] [address] PETER, KEVIN Unavailable [address] + [place] [address] UE Unavailable Unavailable Unavailable SANCHEZ WAGGONER Unavailable [address] + [place] [address] PETER, KEVIN Unavailable [address] + [place] [address] UE Unavailable Unavailable Unavailable SANCHEZ WAGGONER Unavailable [address] + [place] [address] PETER, KEVIN Unavailable [address] + [place] [address] UE Unavailable Unavailable Unavailable SANCHEZ WAGGONER Unavailable [address] + [place] [address] PETER, KEVIN Unavailable [address] + [place] [address] UE Unavailable Unavailable Unavailable SANCHEZ WAGGONER Unavailable [address] + [place] [address] PETER, KEVIN Unavailable [address] + [place] [address] UE Unavailable Unavailable Unavailable SANCHEZ WAGGONER Unavailable [address] + [place] [address] PETER, KEVIN Unavailable [address] + [place] [address] UE Unavailable Unavailable Unavailable SANCHEZ WAGGONER Unavailable [address] + [place] [address] PETER, KEVIN Unavailable [address] + [place] [address] UE Unavailable Unavailable Unavailable SANCHEZ WAGGONER Unavailable [address] + [place] [address] PETER, KEVIN Unavailable [address] + [place] [address] UE Unavailable Unavailable Unavailable SANCHEZ WAGGONER Unavailable [address] + [place] [address] CASSANDRA GREENSH Unavailable [address] + [place] [address] UE Unavailable Unavailable Unavailable SANCHEZ WAGGONER Unavailable [address] + [place] [address] PETER KEVIN Unavailable [address] + [place] [address] UE Unavailable Unavailable Unavailable SANCHEZ WAGGONER Unavailable [address] + [place] [address] PETER KEVIN Unavailable [address] + [place] [address] UE Unavailable Unavailable Unavailable SANCHEZ WAGGONER Unavailable [address] + [place] [address] CASSANDRA GREENSH Unavailable [address] + [place] [address] UE Unavailable Unavailable Unavailable Care Team Providers Name Role Phone Raghu Ordonez Attending Unavailable Seals, Raghu Referring Unavailable Seals, Raghu Attending Unavailable Seals, Raghu Referring Unavailable Seals, Raghu Attending Unavailable Brown, Matt Primary Care Unavailable Seals, Raghu Attending Unavailable Seals, Raghu Attending Unavailable Seals, Raghu Attending Unavailable Seals, Raghu Attending Unavailable Abdirashid, Camron S. Attending Unavailable Brown, Matt Primary Care Unavailable Abdirashid, Carmon S. Referring Unavailable Abdirashid, Camron S. Attending Unavailable Abdirashid, Camron S. Referring Unavailable Brown, Matt Primary Care Unavailable Abdirashid, Camron S. Attending Unavailable Abdirashid, Camron S. Referring Unavailable Brown, Matt Primary Care Unavailable Abdelrahman Moore Attending Unavailable Freddie Arteaga Attending Unavailable Brown, Matt Referring Unavailable Brown, Matt Primary Care Unavailable Seals, Raghu Attending Unavailable Seals, Raghu Attending Unavailable Brown, Matt Primary Care Unavailable Freddie Arteaga Attending Unavailable Brown, Matt Referring Unavailable Freddie Arteaga Attending Unavailable ChandlerFreddie Referring Unavailable Brown, Matt Primary Care Unavailable Seals, Raghu Attending Unavailable Seals, Raghu Admitting Unavailable Seals, Raghu Attending Unavailable Seals, Raghu Referring Unavailable Brown, Matt Primary Care Unavailable PROBLEMS PROBLEMS DATE TYPE CONDITION / CODE ATTENDING STATUS SOURCE 04/07/2018 Unknown Z12.4 - Encounter Raghu Ordonez Active [facility] for screening for Community malignant neoplasm [facility] cervix / Repository Z12.4(ICD-10) 03/16/2018 Unknown Z30.430 - Encounter Seals, Raghu Active [place] for insertion of Community intrauterine Hospital contraceptive device Repository / Z30.430(ICD-10) 03/16/2018 Unknown Z11.3 - Encounter SealRaghu oconnell Active [place] for screening for Community infections with a Hospital predominantly sexual Repository mode of transmission / Z11.3(ICD-10) 01/23/2018 Unknown G89.18 - Other acute SealsRaghu Active [place] postprocedural pain Community / G89.18(ICD-10) Hospital Repository 12/27/2017 Unknown J02.9 - Acute ChnadlerFreddie Active [facility] pharyngitis, Community unspecified / Hospital J02.9(ICD-10) Repository 11/03/2017 Unknown Z34.83 - Encounter SealRaghu oconnell Active [place] for supervision of Community other normal Hospital , third Repository trimester / Z34.83(ICD-10) 09/29/2017 Unknown Z34.82 - Encounter Abdelrahman Moore Active [place] for supervision of Community other normal Hospital , second Repository trimester / Z34.82(ICD-10) 09/29/2017 Unknown N39.0 - Urinary Abdelrahman Moore Active [facility] tract infection, Community site not specified / Hospital N39.0(ICD-10) Repository 11/15/2017 Unknown R42 - Dizziness and Abdirashid Active [facility] giddiness / Camron S. Community R42(ICD-10) Hospital Repository 06/22/2017 Unknown Z34.81 - Encounter SealRaghu oconnell Active [place] for supervision of Community other normal Hospital , first Repository trimester / Z34.81(ICD-10) 06/10/2017 Unknown Z32.01 - Encounter SealRaghu oconnell Active [facility] for test, Community result positive / Hospital Z32.01(ICD-10) Repository 05/23/2017 Unknown O20.0 - Threatened SealsRaghu Active [place] / Community O20.0(ICD-10) Hospital Repository PROCEDURES PROCEDURES No Procedure Records FoundRESULTS RESULTS PAP I-G W/RFX HRHPV Collected: 04/07/2018 Status: F Source: [place] 2:15 PM [facility] REPOSITORY Order Comment: CYTOLOGY INFORMATION: - CLINICAL INFORMATION: - DATE LMP/MENOPAUSE: IUD - COLLECTION VIAL: Thin Prep Vial - CHEMICAL PROCESS ANALYST SOURCE: CERVICAL/ENDOCERVICAL - COLLECTION TECHNIQUE: BRUSH/SPATULA Specimen Comment: [id number] Specimen Comment: Source.............Cervix;Endocervix Specimen Comment: Other..............IUD Specimen Comment: No. of containers..01 ThinPrep Vial TYPE CODE TESTS RESULT OUT OF RANGE REFERENCE UNITS LAB L7400.0800 . Normal DIAGN Comment Result Comment: NEGATIVE FOR INTRAEPITHELIAL LESION AND MALIGNANCY. LAB L7400.0900 . Normal ADEQ Comment Result Comment: Satisfactory for evaluation. Endocervical and/or squamous metaplastic cells (endocervical component) are present. LAB L7400.1400 . Normal PERFORM Comment Result Comment: Amrita Murray, Radioactive Waste Disposal Dispatcher (ASCP) LAB L7400.2575 . Normal TEST METHOD Comment Result Comment: This liquid based ThinPrep(R) pap test was screened with the use of an image guided system. LAB L7400.2600 . Normal . COMM LAB L7400.2700 . Normal PAPSMR Comment Result Comment: The Pap smear is a screening test designed to aid in the detection of premalignant and malignant conditions of the uterine cervix. It is not a diagnostic procedure and should not be used as the sole means of detecting cervical cancer. Both false-positive and false-negative reports do occur. LAB L7400.2800 . Normal HPV RFLX Comment Result Comment: The HPV DNA reflex criteria were not met with this specimen result therefore, no HPV testing was performed. Performed at: - [facility] [id number] Fruit Worker: Janine Nunez MD, Phone: [phone] Performed By: #### L7400.0350 #### [facility] (refer to report for specific site) refer to report for address and phone number CT/NG [facility] BY PCR Collected: 03/15/2018 Status: F Source: [place] 4:50 PM [facility] REPOSITORY TYPE CODE TESTS RESULT OUT OF RANGE REFERENCE UNITS LAB L8200.2100 Negative Normal Chlam Negative Trac PCR LAB L8200.2200 Negative Normal NG by Negative PCR Performed By: #### L8200.1999 #### [facility] [address] [place], [address] DISCHARGE SUMMARY Observed: 01/22/2018 Status: F Source: [place] 11:39 AM [facility] REPOSITORY [facility] Medical Records Department [address] [place] [address] Discharge Summary 01/22/18 1131 MR#: [id number] Acct: [id number] Name: CRISTY GREEN Rep #: [id number] : 1990 27 From: Abdelrahman Moore MD PCP: Status: ADM IN Y Location: WD251-1 Discharge Summary Date of Admission: 01/19/18 Date of Discharge: 01/22/18 Summary: Procedure: Repeat low transverse cervical section HPI: Uneventful care. PE: Unremarkable. Hospital Course: The patient is a 27 year old who presented to and D at 39+ weeks gestation for repeat . Postoperatively she did well except for an episode of hemorrhage on postoperative day 0 due to uterine atony. IV Pitocin, IM Methergine and Hemabate were given to alleviate this problem. Patient's hemoglobin stabilized in the mid sevens with platelet count of approximately 88,000. She remained stable and demonstrated a stable HGB of 7.1 and platelet count just over 100,000 as well as bowel function on POD 3 at which time it was felt she was ready for discharge. She denied any orthostatic changes or symptoms at the time of discharge. Homegoing Instruction: She was instructed not to drive for several days or if using narcotic pain medication, not to put anything in the vagina for 4 weeks, not to lift >25 lbs for 6 weeks and to call the office for an appointment in 2 weeks and 6 weeks. Discharge Medications: She was given a prescription for Oxycodone and Colace and also plans to use Aleve or Motrin or Tylenol at home as needed for pain and constipation. She was also instructed to use iron at home for at least 6 weeks to recover her blood counts. - Physical Exam Vital Signs Temp Pulse Resp BP Pulse Ox 97.4 F L 100 16 127/80 H 100 01/22/18 09:30 01/22/18 09:30 01/22/18 09:30 01/22/18 09:30 01/22/18 09:30 Oxygen Delivery Method Room Air Weight: 244 lb 7.882 oz Body Mass Index (BMI) 40.6 Intake and Output for Last 24 Hours Intake Total 1800 / 1800 4465 / 4465 Output Total 1550 / 1550 2170 / 2170 Balance 250 / 250 2295 / 2295 Laboratory Tests Past 24 Hrs 01/22/18 1139 <Electronically signed by Abdelrahman Moore MD> Date Abdelrahman Moore MD Cosigner Signature (if applicable): Date CC: Abdelrahman Moore MD Signed CBC W/DIFF, AUTOMATED Collected: 01/22/2018 Status: F Source: [place] 5:25 AM [facility] REPOSITORY TYPE CODE TESTS RESULT OUT OF RANGE REFERENCE UNITS LAB L100.1000 4.4-11.0 K/mm3 Normal WBC 7.9 LAB L100.1200 4.2-5.4 M/mm3 Low RBC 2.35 LAB L100.1300 12.0-15.0 g/dl Low HGB 7.4 LAB L100.1400 37-47 % Low HCT 21.9 LAB L100.1500 81-99 fL Normal MCV 93.2 LAB L100.1600 27.0-32.0 pg Normal MCH 31.5 LAB L100.1700 32-36 g/gl Normal MCHC 33.8 LAB L100.1810 11.6-14.6 % High RDW CV 15.3 LAB L100.1820 35.1-43.9 fl High RDW SD 49.7 LAB L100.1900 150-450 K/mm3 Low PLT 107 LAB L100.2000 6.2-12.0 fl Normal MPV 11.1 LAB L100.2100 47-70 % High NEUT% 79.1 LAB L100.2200 19-41 % Low LY% 14.8 LAB L100.2300 0-10 % Normal MONO% 5.3 LAB L100.2400 0-5 % Normal EO% 0.4 LAB L100.2500 0-1 % Normal BASO% 0.1 LAB L100.2550 0.0-0.9 % Normal IM GRAN % 0.300 Result Comment: IG% - Immature Granulocytes (promyelocytes, myelocytes and metamyelocytes) > 1% indicates that a LEFT SHIFT is Present. LAB L100.2620 2.0-7.7 X10 3/uL Normal Absolute Neut 6.2 LAB L100.2720 0.83-4.51 X10 3/ul Normal Absolute Lymph 1.16 Performed By: #### L100.0100 #### [facility] [address] [place], [address] CBC-COMPLETE BLOOD CNT Collected: 01/21/2018 Status: F Source: [place] NO DIFF 5:50 AM [facility] REPOSITORY Order Comment: Comments: Day #1 Reason for Laboratory Test TYPE CODE TESTS RESULT OUT OF RANGE REFERENCE UNITS LAB L100.1000 4.4-11.0 K/mm3 Normal WBC 9.4 LAB L100.1200 4.2-5.4 M/mm3 Low RBC 2.46 LAB L100.1300 12.0-15.0 g/dl Low HGB 7.6 LAB L100.1400 37-47 % Low HCT 22.6 LAB L100.1500 81-99 fL Normal MCV 91.9 LAB L100.1600 27.0-32.0 pg Normal MCH 30.9 LAB L100.1700 32-36 g/gl Normal MCHC 33.6 LAB L100.1810 11.6-14.6 % High RDW CV 15.3 LAB L100.1820 35.1-43.9 fl High RDW SD 49.2 LAB L100.1900 150-450 K/mm3 Low PLT 88 LAB L100.2000 6.2-12.0 fl Normal MPV 11.3 Performed By: #### L100.0500 #### [facility] [address] [place], [address] CBC-COMPLETE BLOOD CNT Collected: 01/20/2018 Status: F Source: [place] NO DIFF 11:20 PM [facility] REPOSITORY TYPE CODE TESTS RESULT OUT OF RANGE REFERENCE UNITS LAB L100.1000 4.4-11.0 K/mm3 High WBC 11.3 LAB L100.1200 4.2-5.4 M/mm3 Low RBC 2.83 LAB L100.1300 12.0-15.0 g/dl Low HGB 8.7 LAB L100.1400 37-47 % Low HCT 25.8 LAB L100.1500 81-99 fL Normal MCV 91.2 LAB L100.1600 27.0-32.0 pg Normal MCH 30.7 LAB L100.1700 32-36 g/gl Normal MCHC 33.7 LAB L100.1810 11.6-14.6 % High RDW CV 15.6 LAB L100.1820 35.1-43.9 fl High RDW SD 51.2 LAB L100.1900 150-450 K/mm3 Low PLT 107 LAB L100.2000 6.2-12.0 fl High MPV 12.3 Performed By: #### L100.0500 #### [facility] [address] [facility]. [place], [place], [address] RH NEGATIVE MOM Collected: 01/20/2018 Status: F Source: [place] WORKUP 6:10 PM [facility] REPOSITORY Order Comment: Baby's Full Name FRANCISCO GREEN Baby's Bracelet # [id number] Baby's MR # [id number] TYPE CODE TESTS RESULT OUT OF RANGE REFERENCE UNITS LAB B101.0425 O Normal MOM'S ABO NEGATIVE RH LAB B101.0450 Normal MOM'S ABS NEGATIVE LAB B101.0500 NEGATIVE Normal NEGATIVE SCREEN LAB B101.0950 O Normal BABY'S POSITIVE ABO RH LAB B101.1000 NEGATIVE Normal BABY'S NEGATIVE ERIK Performed By: #### B101.0300 #### [facility] [address] [place], [place], [address] RHOGAM Collected: 01/20/2018 Status: F Source: [place] 6:10 PM [facility] REPOSITORY TYPE CODE TESTS RESULT OUT OF REFERENCE UNITS RANGE LAB U100.2500 [id number] TRANSFUSED PRODUCT: Rho(D) Immune Globulin RhoGam COUNT: 1 Performed By: #### U100.2500 #### [facility] - refer to report for specific site OPERATIVE REPORT Observed: 01/20/2018 Status: F Source: [place] 1:15 PM [facility] REPOSITORY [facility] Medical Records Department [address] [place] [address] Operative Report 01/20/18 1207 MR#: [id number] Acct: [id number] Name: CRISTY GREEN Rep #: [id number] : 1990 27 From: Raghu Ordonez MD PCP: Status: ADM IN Y Location: VK985-2 Problem List (1) Previous section Status: Chronic Report of Operation Date of Procedure: 01/20/18 Pre-Operative Diagnosis: Previous Section Post-Operative Diagnosis: Same Surgery/Procedure Performed:: Repeat Low Transverse Section Description of Surgical Findings:: Normal appearing uterus, ovaries, and fallopian tubes. Live female weighing 8lb6oz. APGARs 9/9. Minimal scarring present. actuarial consultant: Ronal Carter Type of Anesthesia:: Spinal Anesthesiologist: Frank Lim Special Medications: none Specimen's removed: cord blood for typing Drains: kerns Estimated Blood Loss (mL): 600cc Fluids Replaced: 1500cc LR Description of Procedure: Cristy was taken to the OR with IV running. She was given two grams of Ancef intravenously for surgical prophylaxis. SCDs were in place and operational throuhout the case. Spinal anesthesia was introduced without complication. A kerns catheter was placed. She was then prepped and draped in the supine position with a leftward tilt. Once anesthesia was deemed adequate a Phanneseil incision was made through the previous scar. The underlying subcutaneous tissue was dissected down to the level of fascia with sharp and blunt dissection. The fascia was then incised horizontally in the midline. This incision was entered bilaterally using the Acosta scissors. The upper portion of the fascial defect was then grasped with two Elfego clamps elevated and the underlying rectus muscles dissected off with blunt and sharp dissection. The rectus muscles were dissected off the lower fascial defect in a similar fashion. The rectus muscles were then in the midline, the peritoneum identified and entered sharply. This defect was enlarged using blunt retraction. A bladder blade was then placed. A bladder flap was created using sharp and blunt dissection. The bladder blade was replaced. A transverse incision was then made in the lower uterine segment and once the cavity was entered the uterine defect was extended using blunt lateral and superior traction. The baby's head was then delivered atraumatically followed by the body. The nose and mouth were suctioned with a bulb suction. Delayed cord clamping was employed. There was an active cry within one minute of delivery. The cord was then clamped and cut. The baby was then handed off to the waiting nurse for evaluation. The placenta was then delivered manually, the uterus exteriorized, and cleared of all clot and membranes. The uterine defect was then closed in two layes with #1 Vicryl suture. The posterior cul de sac was cleared of all clot and fluid. The uterus returned to the abdomen. The uterine incision was inspected and found to be hemostatic. The gutters were then cleared of all clot and fluid. The peritoneum was closed with 2-0 Vicryl. The rectus muscles were reapproximated with 0-Vicryl. The fascia was closed with a running stitch of #1 Stratofix suture. The subcutaneous tissue was closed with a running stitch of 2-0 Vicryl. The skin was closed with a running stitch of 4-0 Monocryl. Sponge, lap, needle, and instrument counts were correct. She was taken to the recovery room in stable condition. Grafts/Implants Used: Julee - Complications none - Admit VTE Documentation VTE Present on Admission: No VTE Mechan Device Prophylaxis: SCD's VTE Pharm Prophylaxis ordered?: No 01/20/18 1315 <Electronically signed by Raghu Ordonez MD> Date Raghu Ordonez MD CC: Raghu Ordonez MD Signed OPERATIVE REPORT Observed: 01/20/2018 Status: F Source: [place] 1:07 PM [facility] REPOSITORY [facility] Medical Records Department [address] [place] [address] Operative Report 01/20/18 1216 MR#: [id number] Acct: [id number] Name: CRISTY GREEN Rep #: [id number] : 1990 27 From: Raghu Ordonez MD PCP: Status: ADM IN Y Location: TF325-2 - Problem List (1) Previous section Status: Chronic Delivery Classification: Scheduled Final ELMER: 01/27/18 Final ELMER Source: US <20 weeks Gestational age: 39 Weeks and 0 Days Indications for : Repeat Elective Description of Procedure: Normal appearing uterus, ovaries, and fallopian tubes. Delivery of a live female , APGARs 9/9. weight 8lb6oz. Minimal scarring present. Amniotic Membrane Rupture Type: Artificial Amniotic Fluid Description: Clear Specimen(s) sent to pathology: cord blood for typing Drain: Kerns to straight drain Fluids Replaced: 1500cc LR Cord Entanglement: None Nuchal Cord Compression: Without compression Cord Vessel Description: 3 Vessels Esitmated Blood Loss (ml): 600cc Infant Gender: Female (1 minute): 9 (5 minute): 9 Pre-op Antibiotic Given: Ancef 2 grams IV x1 Pt instructed on risks of surgery: Bleeding, Infection, Need for Future C-Sections, Injury to surrounding structure(s) including bowel and bladder Complications: None - Admit VTE Documentation VTE Present on Admission: No VTE Mechan Device Prophylaxis: SCD's VTE Pharm Prophylaxis ordered?: No 01/20/18 1307 <Electronically signed by Raghu Ordonez MD> Date Raghu Ordonez MD CC: Raghu Ordonez MD Signed DISCHARGE INSTRUCTION Observed: 01/20/2018 Status: F Source: [place] 12:07 PM [facility] REPOSITORY [facility] Medical Records Department [address] [place] [address] Instructions for Home/Discharge Instructions 01/20/18 1206 MR#: [id number] Acct: [id number] Name: CRISTY GREEN Rep #: [id number] : 1990 27 From: Raghu Ordonez MD PCP: Status: ADM IN Discharge Diet: No Restrictions Discharge Activity: Return to Normal Activity, May Not Drive, May not drive while taking narcotic pain medications., May Shower Return to work on:: 03/20/18 May resume sexual activity in: 4-6 weeks Call your doctor if your incision/area has: Sudden Increased Bleeding, Increased Pain/ Swelling, Increased Redness, Foul Smelling Discharge, Swelling at the incision site Call your doctor if you observe: Fever of 101 or Higher, Inability to urinate, Inability to have a bowel movement, Using more than one pad per hour, Shortness of breath, Chest pain, Calf discomfort, Uncontrolled pain Remove Dressing in (days):: 2 Cleanse incision/area with: Soap AND Water Additional Instructions: If you experience any of the following, contact your healthcare provider. * Bleeding that soaks a pad every hour for 2 hours * Fever 100.4 or higher * Unrelieved incision or abdominal pain * Swelling, redness, discharge or bleeding from your incision or episiotomy site * Your incision begins to separate * Problems urinating (including inability to urinate or burning while urinating). * Visual changes * Severe headache * Flu-like symptoms * Pain or redness in one of both of your breasts * Pain, warmth, tenderness or swelling in your legs, especially the calf area * Frequent nausea and vomiting * Symptoms of depression or anxiety If you experience any of the following, call 911 or go to the nearest Emergency Room. * Chest pain * Problems breathing * Seizure activity * Partial or complete paralysis of a body part, slurred speech, weakness or drooping of the face, or a sudden inability to walk or hold your balance Allergies/Adverse Reactions: Allergies No Known Allergies Allergy (Verified 12/27/17 11:20) Medications to take at Discharge Vits [Prenatabs FA ] 1 tab PO DAILY 09/25/15 docusate sodium 100 mg capsule 100 mg PO BID 30 Days #60 10/24/17 linaclotide 145 mcg capsule 145 mcg PO DAILY 10/24/17 Sertraline HCl [Zoloft] 50 mg PO DAILY 12/11/17 Ferrous Gluconate 325 mg PO DAILY@0800 01/19/18 Ibuprofen 600 mg PO Q6H PRN PRN #30 tab 01/20/18 Oxycodone [Oxyir] 5 - 10 mg PO Q4H PRN PRN 7 Days #28 tab 01/20/18 The following prescriptions were given: Oxycodone [Oxyir] 5 - 10 mg PO Q4H PRN PRN 7 Days #28 tab PRN Reason: Mod-Severe Pain (4-01/11) Ibuprofen 600 mg PO Q6H PRN PRN #30 tab PRN Reason: pain or cramping Follow-Up: Call to make an appointment with your doctor for an incision check in 1-2 weeks. You will also need a 6 week post- follow up appointment. Test results from this visit will be discussed in further detail at your follow-up appointment, if applicable. Please Follow Up With: Raghu Ordonez MD When: one week Proposed Discharge Date: 01/22/18 01/20/18 1207 <Electronically signed by Raghu Ordonez MD> Date Raghu Ordonez MD CC: PROTHROMBIN TIME W/INR Collected: 01/19/2018 Status: F Source: [place] 9:40 AM [facility] REPOSITORY TYPE CODE TESTS RESULT OUT OF RANGE REFERENCE UNITS LAB L300.4150 11.7-14.9 SECONDS Normal PROTIME 13.2 LAB L300.4200 Normal INR 1.0 Performed By: #### L300.3900, L300.4310, L100.0100, B101.7450 #### [facility] [address] [place], [place], [id number] PARTIAL THROMBOPLAST Collected: 01/19/2018 Status: F Source: ASHLEY TIME 9:40 AM [facility] REPOSITORY TYPE CODE TESTS RESULT OUT OF RANGE REFERENCE UNITS LAB L300.4310 24.1-36.2 Seconds Normal PTT 30.0 Performed By: #### L300.3900, L300.4310, L100.0100, B101.7450 #### [facility] [address] [place], [address] CBC W/DIFF, AUTOMATED Collected: 01/19/2018 Status: F Source: ASHLEY 9:40 AM [facility] REPOSITORY TYPE CODE TESTS RESULT OUT OF RANGE REFERENCE UNITS LAB L100.1000 4.4-11.0 K/mm3 Normal WBC 5.1 LAB L100.1200 4.2-5.4 M/mm3 Low RBC 3.82 LAB L100.1300 12.0-15.0 g/dl Low HGB 11.6 LAB L100.1400 37-47 % Low HCT 34.3 LAB L100.1500 81-99 fL Normal MCV 89.8 LAB L100.1600 27.0-32.0 pg Normal MCH 30.4 LAB L100.1700 32-36 g/gl Normal MCHC 33.8 LAB L100.1810 11.6-14.6 % High RDW CV 15.3 LAB L100.1820 35.1-43.9 fl High RDW SD 49.6 LAB L100.1900 150-450 K/mm3 Low PLT 127 LAB L100.2000 6.2-12.0 fl Normal MPV 11.9 LAB L100.2100 47-70 % Normal NEUT% 69.7 LAB L100.2200 19-41 % Normal LY% 23.4 LAB L100.2300 0-10 % Normal MONO% 5.7 LAB L100.2400 0-5 % Normal EO% 0.8 LAB L100.2500 0-1 % Normal BASO% 0.2 LAB L100.2550 0.0-0.9 % Normal IM GRAN % 0.200 Result Comment: IG% - Immature Granulocytes (promyelocytes, myelocytes and metamyelocytes) > 1% indicates that a LEFT SHIFT is Present. LAB L100.2620 2.0-7.7 X10 3/uL Normal Absolute Neut 3.6 LAB L100.2720 0.83-4.51 X10 3/ul Normal Absolute Lymph 1.19 Performed By: #### L300.3900, L300.4310, L100.0100, B101.7450 #### [facility] [address] [place], [place], [address] TYPE AND SCREEN Collected: 01/19/2018 Status: F Source: ANDERSON 9:40 AM [facility] REPOSITORY Order Comment: Reason for Type AND Screen/Red Cells: ROUTINE TYPE CODE TESTS RESULT OUT OF RANGE REFERENCE UNITS LAB B10.0800 O Normal BLOOD TYPE GEL NEGATIVE LAB B100.4000 Normal Antibody NEGATIVE Screen Performed By: #### L300.3900, L300.4310, L100.0100, B101.7450 #### [facility] [address] [place], [place], [address] GROUP B STREP DNA Collected: 12/30/2017 Status: F Source: ASHLEY BY PCR 1:07 PM [facility] REPOSITORY Order Comment: Source: Vaginal-Rectal TYPE CODE TESTS RESULT OUT OF RANGE REFERENCE UNITS LAB L8200.0100 Negative Normal GBS TEST Negative RESULT Performed By: #### L8200.0000 #### [facility] [address] [place], [address] Observed: 12/30/2017 Status: F Source: ASHLEY CULTURE, GROUP B 12:00 AM [facility] STREPTOCOCCUS REPOSITORY PAT Culture Group B Beta Streptococcus is not isolated. Performed By: #### M100.1800 #### [facility] [address] [place], [place], [address] GROUP A STREP BY Collected: 12/28/2017 Status: F Source: [place] PCR 12:30 PM [facility] REPOSITORY TYPE CODE TESTS RESULT OUT OF REFERENCE UNITS RANGE LAB GASSR Throat Swab GAS Specimen Source LAB PCRGAS Negative for Group A Strep Group A PCR Streptococcus by PCR. Result Comment: This test was developed and its performance characteristics determined by [facility] Esc[facility] [place] ([facility]). It has not been cleared or approved by the FDA. [facility] is regulated under CLIA as qualified to perform high-complexity testing. This test is used for clinical purposes. It should not be regarded as inv estigational or for research. Performed By: #### GASPCR #### [facility] [address] [place], [place] [address] PROGRESS Observed: 12/28/2017 Status: COMPLETED Source: [place] 12:10 PM [facility] REPOSITORY HNO ID: [id number] Author: Vanessa Montemayor Service: (none) Author Type: Nurse Practitioner Type: Progress Notes Filed: 12/28/2017 12:26 PM Note Text: Subjective HPI Cristy GREEN is a 27 year old female who presents with sore swollen throat. She rates her pain a 7/10. [facility] but states there are still no results available. She took tylenol for the pain. She states her sister is currently on an antibiotic for strep throat. She is currently 36 weeks . Review of Systems Constitutional: Negative. Negative for fever. HENT: Positive for sore throat. Negative for congestion. Respiratory: Negative. Negative for cough. Gastrointestinal: Negative for nausea and vomiting. Skin: Negative. Negative for rash. Neurological: Negative for headaches. BP 112/68 Pulse 85 Temp 37.2 ?C (98.9 ?F) (Left Tympanic) Wt 106.1 kg (234 lb) SpO2 99% No past medical history on file. PAST SURGICAL HISTORY Procedure Laterality Date - HAND SURGERY HX 2006 left ALLERGIES Banana; Cats; Dogs; Dust Mites; Environmental [Other]; Grass Pollen MEDICATIONS linaclotide (LINZESS) 145 mcg cap Take by mouth. sertraline (ZOLOFT) 100 mg tablet Take 100 mg by mouth twice daily. docusate sodium (COLACE ORAL) Take by mouth. PNV no.95/ferrous fum/folic ac ( ORAL) Take by mouth. ferrous sulfate (IRON ORAL) Take by mouth. dicyclomine (BENTYL) 20 mg tablet Take 20 mg by mouth every 6 hours. Norethindrone-Eth Estradiol (ALYACEN , ,) 1-35 mg-mcg per tablet Take 1 tablet by mouth once daily. FAMILY HISTORY Problem Relation Age of Onset - Cervical Cancer Mother 40 - other (heart [Other]) Father IA X 4 - Diabetes Maternal Grandmother - Hypertension Maternal Grandmother Social History Substance Use Topics - Smoking status: Never Smoker - Smokeless tobacco: Never Used - Alcohol use Yes Comment: occasional Objective Physical Exam Constitutional: She is well-developed, well-nourished, and in no distress. HENT: Right Ear: Tympanic membrane, external ear and ear canal normal. Left Ear: Tympanic membrane, external ear and ear canal normal. Nose: Nose normal. No rhinorrhea. Mouth/Throat: Uvula is midline and mucous membranes are normal. Posterior oropharyngeal edema present. No oropharyngeal exudate or posterior oropharyngeal erythema. Neck: Neck supple. Cardiovascular: Normal rate and regular rhythm. Pulmonary/Chest: Effort normal and breath sounds normal. No respiratory distress. She has no wheezes. She has no rales. Lymphadenopathy: She has no cervical adenopathy. Neurological: She is alert. Skin: Skin is warm and dry. No rash noted. No erythema. Nursing note and vitals reviewed. ASSESSMENT/PLAN: 1. Sore throat - ICD9: 462, ICD10: J02.9 - suspect viral - Advised patient that any throat culture takes at least 24 hours to complete. She requests rapid strep test be done here today. - Rapid Strep negative in the office today and Throat culture pending - Discussed supportive care treatment with fluids, rest and analgesia. - The patient may also use warm salt water gargles, throat lozenges and/or OTC throat spray as needed. - Call back if drooling, increased temperature, symptoms of dehydration and/or still sick in one week - RAPID STREP TEST B/O - GROUP A STREPTOCOCCUS BY PCR - Follow-up with your PCP in 3-5 days if symptoms have not improved or sooner if symptoms worsen - Discussed red flags and need for immediate medical evaluation if any occur. - Discussed supportive care treatment with fluids, rest and analgesia. - Discussed expected course of illness Vanessa Montemayor APRN.CNP CNOV Observed: 12/28/2017 Status: COMPLETED Source: AM[place] 12:00 PM [facility] REPOSITORY Office Visit (WSTR) CRISTY GREEN ([id number]) 1990 F Date Time Provider Department 12/28/17 12:00 PM VANESSA MONTEMAYOR ([facility]) [facility] During your visit today, we recorded the following information about you: Temperature Pulse Blood pressure Weight 98.9 degrees 85/minute 112/68 106.1 kg Vanessa Montemayor APRN.CNP 12/28/2017 12:26 PM Signed Subjective HPI Cristy MARTINIMAN is a 27 year old female who presents with sore swollen throat. She rates her pain a 7/10. [facility] but states there are still no results available. She took tylenol for the pain. She states her sister is currently on an antibiotic for strep throat. She is currently 36 weeks . Review of Systems Constitutional: Negative. Negative for fever. HENT: Positive for sore throat. Negative for congestion. Respiratory: Negative. Negative for cough. Gastrointestinal: Negative for nausea and vomiting. Skin: Negative. Negative for rash. Neurological: Negative for headaches. BP 112/68 Pulse 85 Temp 37.2 ?C (98.9 ?F) (Left Tympanic) Wt 106.1 kg (234 lb) SpO2 99% No past medical history on file. PAST SURGICAL HISTORY Procedure Laterality Date - HAND SURGERY HX 2006 left ALLERGIES Banana; Cats; Dogs; Dust Mites; Environmental [Other]; Grass Pollen MEDICATIONS linaclotide (LINZESS) 145 mcg cap Take by mouth. sertraline (ZOLOFT) 100 mg tablet Take 100 mg by mouth twice daily. docusate sodium (COLACE ORAL) Take by mouth. PNV no.95/ferrous fum/folic ac ( ORAL) Take by mouth. ferrous sulfate (IRON ORAL) Take by mouth. dicyclomine (BENTYL) 20 mg tablet Take 20 mg by mouth every 6 hours. Norethindrone-Eth Estradiol (ALYACEN , 28,) 1-35 mg-mcg per tablet Take 1 tablet by mouth once daily. FAMILY HISTORY Problem Relation Age of Onset - Cervical Cancer Mother 40 - other (heart [Other]) Father IA X 4 - Diabetes Maternal Grandmother - Hypertension Maternal Grandmother Social History Substance Use Topics - Smoking status: Never Smoker - Smokeless tobacco: Never Used - Alcohol use Yes Comment: occasional Objective Physical Exam Constitutional: She is well-developed, well-nourished, and in no distress. HENT: Right Ear: Tympanic membrane, external ear and ear canal normal. Left Ear: Tympanic membrane, external ear and ear canal normal. Nose: Nose normal. No rhinorrhea. Mouth/Throat: Uvula is midline and mucous membranes are normal. Posterior oropharyngeal edema present. No oropharyngeal exudate or posterior oropharyngeal erythema. Neck: Neck supple. Cardiovascular: Normal rate and regular rhythm. Pulmonary/Chest: Effort normal and breath sounds normal. No respiratory distress. She has no wheezes. She has no rales. Lymphadenopathy: She has no cervical adenopathy. Neurological: She is alert. Skin: Skin is warm and dry. No rash noted. No erythema. Nursing note and vitals reviewed. ASSESSMENT/PLAN: 1. Sore throat - ICD9: 462, ICD10: J02.9 - suspect viral - Advised patient that any throat culture takes at least 24 hours to complete. She requests rapid strep test be done here today. - Rapid Strep negative in the office today and Throat culture pending - Discussed supportive care treatment with fluids, rest and analgesia. - The patient may also use warm salt water gargles, throat lozenges and/or OTC throat spray as needed. - Call back if drooling, increased temperature, symptoms of dehydration and/or still sick in one week - RAPID STREP TEST B/O - GROUP A STREPTOCOCCUS BY PCR - Follow-up with your PCP in 3-5 days if symptoms have not improved or sooner if symptoms worsen - Discussed red flags and need for immediate medical evaluation if any occur. - Discussed supportive care treatment with fluids, rest and analgesia. - Discussed expected course of illness KAREN Schofield APRN.CNP 12/28/2017 12:22 PM Signed ASSESSMENT/PLAN: 1. Sore throat - ICD9: 462, ICD10: J02.9 - suspect viral - Rapid Strep negative in the office today and Throat culture pending - Discussed supportive care treatment with fluids, rest and analgesia. - The patient may also use warm salt water gargles, throat lozenges and/or OTC throat spray as needed. - Call back if drooling, increased temperature, symptoms of dehydration and/or still sick in one week - RAPID STREP TEST B/O - GROUP A STREPTOCOCCUS BY PCR SORE THROAT INSTRUCTIONS SORE THROAT OVERVIEW - Sore throat is a common problem during childhood, and is usually the result of a bacterial or viral infection. Although sore throat usually resolves without complications, it sometimes requires treatment with an antibiotic. There are some less common causes of sore throat that are serious or even life-threatening. This topic will discuss the most common causes and treatments of sore throat in children, as well as the warning signs of more serious conditions. SORE THROAT CAUSES - The most likely cause of a child's sore throat depends upon the child's age, the season, and the geographic area. While viruses are the most common cause of sore throat, bacteria are another common cause. Bacteria and viruses are spread from one person to another through hand contact. Hands get contaminated when the sick individual touches their nose or mouth and then touches another person directly (chjt-xk-cewd contact) or indirectly (dufi-jl-kjdjda, such as doorknob, telephone, toys). It is difficult to determine the cause of sore throat based upon symptoms alone; an examination and laboratory test are recommended in most cases Viruses - There are many viruses that can cause pain and swelling of the throat. The most common include viruses that cause sore throat as part of an upper respiratory infection, such as the common cold. Other viruses that cause sore throat include influenza, adenovirus, and Susan-Turner virus (the cause of mononucleosis). Symptoms - Symptoms that may occur with a viral infection can include a runny nose and congestion, irritation or redness of the eyes, cough, hoarseness, soreness in the roof of the mouth, a skin rash, or diarrhea. In addition, children with viral infections may have a fever and may feel miserable. A high fever does not necessarily mean that the child has a bacterial infection. Group A streptococcus - Group A streptococcus (GAS) is the name of the bacterium that causes strep throat. Although other bacteria can cause a sore throat, GAS is the most common bacterial cause; up to 30 percent of children with a sore throat will have GAS. Strep throat usually occurs during the winter and early spring, and is most common in school-age children and their younger siblings. Symptoms - Symptoms of strep throat in children older than 3 years often develop suddenly and include fever (temperature ?100.4?F or 38?C), headache, abdominal pain, nausea, and vomiting. Other symptoms can include swollen glands in the neck, white patches of pus in the back or sides of the throat, small red spots on the roof of the mouth, and swelling of the uvula. A cough and cold are not commonly seen in children with strep throat. Strep throat is uncommon in children younger than age 2 to 3 years. However, GAS infection can occur in younger children, and may cause a runny nose and congestion that is prolonged, low-grade fever (?101?F or 38.3?C), and tender glands in the neck. Infants younger than 1 year may be fussy and have a decreased appetite and low-grade fever. SORE THROAT TREATMENT - The treatment of sore throat depends upon the cause; strep throat is treated with an antibiotic while viral pharyngitis is treated with rest, pain relievers, and other measures to reduce symptoms. Strep throat - Strep throat is usually treated with an antibiotic, such as penicillin, or an antibiotic similar to penicillin (eg, amoxicillin). Children who are allergic to penicillin will be given an alternate antibiotic. The antibiotic is usually given in pill or liquid form two or three times per day. A one-time injection is also available, and may be recommended if a child is unwilling to take an oral medication. After completing 24 hours of antibiotics, the child is no longer contagious and may return to school. Symptoms usually improve within 1 to 2 days. However, it is important for the child to finish the entire course of treatment (usually 10 days). If a child does not begin to improve or worsens within 3 days, the child should be reevaluated. Throat pain can be treated with a non-prescription pain medication, if needed. (See 'Pain medications' below.) In addition, parents should monitor their child for dehydration, which can develop if the child is not willing to drink or eat due to a sore throat. (See 'Monitor for dehydration' below.) Viral throat pain - Sore throat caused by viral infections usually last 4 to 5 days. During this time, treatments to reduce pain may be helpful but will not help to eliminate the virus. Antibiotics do not improve throat pain caused by a virus and are not recommended. A child with a viral infection is usually allowed to return to school when there has been no fever for 24 hours and the child feels well enough to pay attention. Pain medications - Throat pain can be treated with a mild pain reliever such as acetaminophen (Tylenol?) or a non-steroidal anti-inflammatory agent such as ibuprofen (Motrin?). These medications should be dosed according to weight, not age. Aspirin is not recommended for children <18 years due to the risk of a potentially serious condition known as Johnson syndrome. Monitor for dehydration - Some children with a sore throat are reluctant to drink or eat due to pain. Drinking less fluid can lead to dehydration. To reduce the risk of dehydration, parents can offer warm or cold liquids. (See 'Other interventions' below.) Signs and symptoms of mild dehydration include a slightly dry mouth, increased thirst, and decreased urine output (one wet diaper or void in six hours). Signs of moderate or severe dehydration include decreased urine output (less than one wet diaper or void in six hours), lack of tears when crying, dry mouth, and sunken eyes. A child who is moderately or severely dehydrated should be evaluated by a healthcare provider as soon as possible to determine if treatment is needed. Oral rinses- Salt-water gargles are an old stand-by for relief of throat pain. It is not clear if this treatment is effective, but it is unlikely to be harmful. Most recipes suggest 1/4 to 1/2 teaspoon of salt per cup (8 ounces) of warm water. The water should be gargled and then spit out (not swallowed). Children younger than six to eight years are not able to gargle properly. An oral rinse composed of equal parts of diphenhydramine (Benadryl? liquid) and Maalox? (magnesium hydroxide, aluminum hydroxide, and simethicone) may be helpful for pain caused by a sore mouth or ulcers in the mouth. Children older than six to eight years may swish and spit (not swallow) the mixture. Sprays - Sprays containing topical anesthetics are available to treat sore throat. However, such sprays are no more effective than sucking on hard candy. In addition, a common anesthetic ingredient, benzocaine, can cause allergic reactions. We do not recommend throat sprays for children. Lozenges - A variety of medicated throat lozenges are available to relieve dryness or pain. However, it is not clear that lozenges work any better than hard candy. We do not recommend throat lozenges for children, especially children younger than 3 to 4 years, who can choke. Sucking on hard candy may provide some relief for children older than 3 to 4 years, who are not at risk for choking. Other interventions - Other interventions include sipping warm beverages (eg, honey or lemon tea, chicken soup), cold beverages, or eating cold or frozen desserts (eg, ice cream, popsicles). These treatments are safe for children. Honey should not be given to children younger than 12 months due to the potential risk of botulism poisoning. Alternative therapies - Health food stores, vitamin outlets, and Internet Web sites offer alternative treatments for relief of sore throat pain. We do not recommend these treatments due to the risks of contamination with pesticides/herbicides, inaccurate labeling and dosing information, and a lack of studies showing that these treatments are safe and effective. SORE THROAT PREVENTION - Hand washing is an essential and highly effective way to prevent the spread of infection. Hands should be wet with water and plain soap, and rubbed together for 15 to 30 seconds. Special attention should be paid to the fingernails, between the fingers, and the wrists. Hands should be rinsed thoroughly, and dried with a single use towel. Alcohol-based hand rubs are a good alternative for disinfecting hands if a sink is not available. Hand rubs should be spread over the entire surface of hands, fingers, and wrists until dry, and may be used several times. These rubs can be used repeatedly without skin irritation or loss of effectiveness. Hand rubs are available as a liquid or wipe in small, portable sizes that are easy to carry in a pocket or handbag. When a sink is available, visibly soiled hands should be washed with soap and water. Hands should be washed after coughing, blowing the nose or sneezing. While it is not always possible to limit contact with a person who is sick, avoiding touching the eyes, nose, or mouth after direct contact can help to prevent the spread of infection. In addition, tissues should be used to cover the mouth when sneezing or coughing. These used tissues should be disposed of promptly. Sneezing/coughing into the sleeve of one's clothing (at the inner elbow) is another means of containing sprays of saliva and secretions and has the advantage of not contaminating the hands. WHEN TO SEEK HELP - Parents of a child with throat pain and one or more of the following should contact their healthcare provider immediately: Difficulty swallowing or breathing Excessive drooling in an or young child Temperature ?101?F or 38.3?C Swelling of the neck Child is unable or unwilling to drink or eat Voice sounds muffled Child has a stiff neck or difficulty opening the mouth WHERE TO GET MORE INFORMATION - Your child's healthcare provider is the best source of information for questions and concerns related to your child's medical problem. This article will be updated as needed every four months on our web site ([email or web address]). Information below was obtained from Up to date Last literature review version 19.2: August 2010 This topic last updated: November 19, 2009 Referring Provider: SELF [200] Allergies As of Date: 12/28/2017 Noted Allergy Reaction BANANA 04/02/2005 5 - Intolerance CATS 04/02/2005 9 - Itching DOGS 04/02/2005 9 - Itching DUST MITES 04/02/2005 9 - Itching environmental [Other] 04/02/2005 9 - Itching GRASS POLLEN 04/02/2005 9 - Itching Date Reviewed: 12/28/2017 Reviewed by: Vanessa ([facility]) Alb[place] - Fully Assessed Reason for Visit: Swollen Glands [[id number]] Primary Visit Diagnosis:Sore throat [J02.9] Order(s):RAPID STREP TEST B/O [1293559] Order #: [id number] GROUP A STREPTOCOCCUS BY PCR [SQGASPCR] Order #: [id number] Prescriptions as of 12/28/2017 Sig: LINACLOTIDE 145 MCG CAPSULE Take by mouth. SERTRALINE 100 MG TABLET Take 100 mg by mouth twice da* COLACE ORAL Take by mouth. ORAL Take by mouth. IRON ORAL Take by mouth. DICYCLOMINE 20 MG TABLET Take 20 mg by mouth every 6 h* NORETHINDRONE-ETHINYL ESTRADI* Take 1 tablet by mouth once d* Problem List As Of Date 12/28/2017 Noted Resolved Abdominal pain [R10.9] INVALID FOR* IBS (irritable bowel syndrome) [K58.9] INVALID FOR* Dyspareunia [CRH2362] INVALID FOR* Pelvic pain in female [R10.2] INVALID FOR* Other instructions from your clinician: ASSESSMENT/PLAN: 1. Sore throat - ICD9: 462, ICD10: J02.9 - suspect viral - Rapid Strep negative in the office today and Throat culture pending - Discussed supportive care treatment with fluids, rest and analgesia. - The patient may also use warm salt water gargles, throat lozenges and/or OTC throat spray as needed. - Call back if drooling, increased temperature, symptoms of dehydration and/or still sick in one week - RAPID STREP TEST B/O - GROUP A STREPTOCOCCUS BY PCR SORE THROAT INSTRUCTIONS SORE THROAT OVERVIEW - Sore throat is a common problem during childhood, and is usually the result of a bacterial or viral infection. Although sore throat usually resolves without complications, it sometimes requires treatment with an antibiotic. There are some less common causes of sore throat that are serious or even life-threatening. This topic will discuss the most common causes and treatments of sore throat in children, as well as the warning signs of more serious conditions. SORE THROAT CAUSES - The most likely cause of a child's sore throat depends upon the child's age, the season, and the geographic area. While viruses are the most common cause of sore throat, bacteria are another common cause. Bacteria and viruses are spread from one person to another through hand contact. Hands get contaminated when the sick individual touches their nose or mouth and then touches another person directly (yrci-rz-wyuo contact) or indirectly (eiif-rb-zvqqvg, such as doorknob, telephone, toys). It is difficult to determine the cause of sore throat based upon symptoms alone; an examination and laboratory test are recommended in most cases Viruses - There are many viruses that can cause pain and swelling of the throat. The most common include viruses that cause sore throat as part of an upper respiratory infection, such as the common cold. Other viruses that cause sore throat include influenza, adenovirus, and Susan-Turner virus (the cause of mononucleosis). Symptoms - Symptoms that may occur with a viral infection can include a runny nose and congestion, irritation or redness of the eyes, cough, hoarseness, soreness in the roof of the mouth, a skin rash, or diarrhea. In addition, children with viral infections may have a fever and may feel miserable. A high fever does not necessarily mean that the child has a bacterial infection. Group A streptococcus - Group A streptococcus (GAS) is the name of the bacterium that causes strep throat. Although other bacteria can cause a sore throat, GAS is the most common bacterial cause; up to 30 percent of children with a sore throat will have GAS. Strep throat usually occurs during the winter and early spring, and is most common in school-age children and their younger siblings. Symptoms - Symptoms of strep throat in children older than 3 years often develop suddenly and include fever (temperature ?100.4?F or 38?C), headache, abdominal pain, nausea, and vomiting. Other symptoms can include swollen glands in the neck, white patches of pus in the back or sides of the throat, small red spots on the roof of the mouth, and swelling of the uvula. A cough and cold are not commonly seen in children with strep throat. Strep throat is uncommon in children younger than age 2 to 3 years. However, GAS infection can occur in younger children, and may cause a runny nose and congestion that is prolonged, low-grade fever (?101?F or 38.3?C), and tender glands in the neck. Infants younger than 1 year may be fussy and have a decreased appetite and low-grade fever. SORE THROAT TREATMENT - The treatment of sore throat depends upon the cause; strep throat is treated with an antibiotic while viral pharyngitis is treated with rest, pain relievers, and other measures to reduce symptoms. Strep throat - Strep throat is usually treated with an antibiotic, such as penicillin, or an antibiotic similar to penicillin (eg, amoxicillin). Children who are allergic to penicillin will be given an alternate antibiotic. The antibiotic is usually given in pill or liquid form two or three times per day. A one-time injection is also available, and may be recommended if a child is unwilling to take an oral medication. After completing 24 hours of antibiotics, the child is no longer contagious and may return to school. Symptoms usually improve within 1 to 2 days. However, it is important for the child to finish the entire course of treatment (usually 10 days). If a child does not begin to improve or worsens within 3 days, the child should be reevaluated. Throat pain can be treated with a non-prescription pain medication, if needed. (See 'Pain medications' below.) In addition, parents should monitor their child for dehydration, which can develop if the child is not willing to drink or eat due to a sore throat. (See 'Monitor for dehydration' below.) Viral throat pain - Sore throat caused by viral infections usually last 4 to 5 days. During this time, treatments to reduce pain may be helpful but will not help to eliminate the virus. Antibiotics do not improve throat pain caused by a virus and are not recommended. A child with a viral infection is usually allowed to return to school when there has been no fever for 24 hours and the child feels well enough to pay attention. Pain medications - Throat pain can be treated with a mild pain reliever such as acetaminophen (Tylenol?) or a non-steroidal anti-inflammatory agent such as ibuprofen (Motrin?). These medications should be dosed according to weight, not age. Aspirin is not recommended for children <18 years due to the risk of a potentially serious condition known as Johnson syndrome. Monitor for dehydration - Some children with a sore throat are reluctant to drink or eat due to pain. Drinking less fluid can lead to dehydration. To reduce the risk of dehydration, parents can offer warm or cold liquids. (See 'Other interventions' below.) Signs and symptoms of mild dehydration include a slightly dry mouth, increased thirst, and decreased urine output (one wet diaper or void in six hours). Signs of moderate or severe dehydration include decreased urine output (less than one wet diaper or void in six hours), lack of tears when crying, dry mouth, and sunken eyes. A child who is moderately or severely dehydrated should be evaluated by a healthcare provider as soon as possible to determine if treatment is needed. Oral rinses- Salt-water gargles are an old stand-by for relief of throat pain. It is not clear if this treatment is effective, but it is unlikely to be harmful. Most recipes suggest 1/4 to 1/2 teaspoon of salt per cup (8 ounces) of warm water. The water should be gargled and then spit out (not swallowed). Children younger than six to eight years are not able to gargle properly. An oral rinse composed of equal parts of diphenhydramine (Benadryl? liquid) and Maalox? (magnesium hydroxide, aluminum hydroxide, and simethicone) may be helpful for pain caused by a sore mouth or ulcers in the mouth. Children older than six to eight years may swish and spit (not swallow) the mixture. Sprays - Sprays containing topical anesthetics are available to treat sore throat. However, such sprays are no more effective than sucking on hard candy. In addition, a common anesthetic ingredient, benzocaine, can cause allergic reactions. We do not recommend throat sprays for children. Lozenges - A variety of medicated throat lozenges are available to relieve dryness or pain. However, it is not clear that lozenges work any better than hard candy. We do not recommend throat lozenges for children, especially children younger than 3 to 4 years, who can choke. Sucking on hard candy may provide some relief for children older than 3 to 4 years, who are not at risk for choking. Other interventions - Other interventions include sipping warm beverages (eg, honey or lemon tea, chicken soup), cold beverages, or eating cold or frozen desserts (eg, ice cream, popsicles). These treatments are safe for children. Honey should not be given to children younger than 12 months due to the potential risk of botulism poisoning. Alternative therapies - Health food stores, vitamin outlets, and Internet Web sites offer alternative treatments for relief of sore throat pain. We do not recommend these treatments due to the risks of contamination with pesticides/herbicides, inaccurate labeling and dosing information, and a lack of studies showing that these treatments are safe and effective. SORE THROAT PREVENTION - Hand washing is an essential and highly effective way to prevent the spread of infection. Hands should be wet with water and plain soap, and rubbed together for 15 to 30 seconds. Special attention should be paid to the fingernails, between the fingers, and the wrists. Hands should be rinsed thoroughly, and dried with a single use towel. Alcohol-based hand rubs are a good alternative for disinfecting hands if a sink is not available. Hand rubs should be spread over the entire surface of hands, fingers, and wrists until dry, and may be used several times. These rubs can be used repeatedly without skin irritation or loss of effectiveness. Hand rubs are available as a liquid or wipe in small, portable sizes that are easy to carry in a pocket or handbag. When a sink is available, visibly soiled hands should be washed with soap and water. Hands should be washed after coughing, blowing the nose or sneezing. While it is not always possible to limit contact with a person who is sick, avoiding touching the eyes, nose, or mouth after direct contact can help to prevent the spread of infection. In addition, tissues should be used to cover the mouth when sneezing or coughing. These used tissues should be disposed of promptly. Sneezing/coughing into the sleeve of one's clothing (at the inner elbow) is another means of containing sprays of saliva and secretions and has the advantage of not contaminating the hands. WHEN TO SEEK HELP - Parents of a child with throat pain and one or more of the following should contact their healthcare provider immediately: Difficulty swallowing or breathing Excessive drooling in an infant or young child Temperature ?101?F or 38.3?C Swelling of the neck Child is unable or unwilling to drink or eat Voice sounds muffled Child has a stiff neck or difficulty opening the mouth WHERE TO GET MORE INFORMATION - Your child's healthcare provider is the best source of information for questions and concerns related to your child's medical problem. This article will be updated as needed every four months on our web site ([email or web address]). Information below was obtained from Up to date Last literature review version 19.2: August 2010 This topic last updated: November 19, 2009 Encounter Status:Closed by VANESSA MONTEMAYOR on 12/28/17 Observed: 12/27/2017 Status: F Source: [facility] CULTURE, R/O STREP A 3:24 PM [facility] REPOSITORY ANDREW Culture No Streptococcus group A isolated. * This cultures intended use is to screen for Beta Streptococcus A only. All other pathogens and potential pathogens will not be screened for or reported. If a complete workup of all potential pathogens is indicated an order for a routine throat culture is required. Performed By: #### M100.010 #### [facility] [address] [place], [place], [address] URGENT CARE VISIT Observed: 12/27/2017 Status: F Source: [facility] REPORT 11:49 AM [facility]POS[facility] [address] [place] [address] [address] [place], [place] [address] OFFICE VISIT Date of Service: 12/27/17 MR#: [id number] Acct: [id number] Name: CRISTY GREEN Joycelyn Rep #: [id number] : 1990 Provider: Freddie ALAN Age/Sex: 27/F Location: [facility] Status: Signed Intake Vital Signs12/27/17 Height 5 ft 5 in 12/27/17 Weight: 231 lb 12/27/17 Body Mass Index (BMI) 38.4 12/27/17 Blood Pressure 126/84 H 12/27/17 Respiratory Rate 14 Intake Visit Reasons: 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 Accompanied by: daughter Is patient in pain?: No Allergies No Known Allergies Allergy (Verified 12/27/17 11:20) Medications Vits [Prenatabs FA ] 1 tab PO DAILY 09/25/15 [History Confirmed 12/27/17] docusate sodium 100 mg capsule 100 mg PO BID 30 Days #60 10/24/17 [History Confirmed 12/27/17] linaclotide 145 mcg capsule 145 mcg PO DAILY 10/24/17 [History Confirmed 12/27/17] Sertraline HCl [Zoloft] 50 mg PO DAILY 12/11/17 [History Confirmed 12/27/17] PFSH Medical History Asthma (Acute) Migraines (Acute) (Acute) SOB (shortness of breath) (Acute) Weight loss (Acute) Surgical History Hx of hand surgery (Acute) Social History Smoking Status: Current some day smoker alcohol intake: never HPI HPI Details: CRISTY GREEN, is a 27 F who presents to the office today for complaint of sore throat for the past 12 hours. Patient states that she has had increasing sore throat for the past 12 hours and is concerned that may be strep as her sister is being treated for a sore throat as well. She denies any fever, chills, sweats. No nausea, vomiting, diarrhea. No other associated symptoms or alleviating/aggravating factors. ROS Const Constitutional: No fever(s), headache(s), anorexia, chills or abnormal sleep pattern ENT ENT: Positive for post nasal drip, sore throat, nasal congestion and nasal discharge; no headache(s) or ear pain Resp Respiratory: No shortness of breath Cardio Cardiology: No irregular heart rhythm or palpitations Gastro GI: No nausea/dyspepsia Neuro Neurology: No headache(s) or behavioral changes Psych Psychiatric: No abnormal sleep pattern, No behavioral changes Exam Const General: cooperative, healthy appearing [facility] Head: normal to inspection Ears: hearing grossly normal bilaterally, TM's normal bilaterally, EAC's normal Nose: external nose normal, nasal discharge clear Mouth: oral mucosae normal Throat: abnormal tonsil bilaterally Resp Effort AND Inspection: normal respiratory effort Auscultation: Bilateral: Clear to Auscultation Cardio Palpation: normal PMI Rate: regular rate Rhythm: regular rhythm Neuro General: CN's II-XI intact bilaterally, alert Psych Appearance: grossly normal Mental Status: mental status grossly normal Results BMSRAPIDSTREPA Office Rapid Strep A Negative Last Edit by Romina Liu on 12/27/17 11:23 Assessment AND Plan Problems 1. Acute pharyngitis, unspecified etiology J02.9 Status Acute Plan Negative rapid strep in the office today. Patient advised we will send the swab off for culture. Encouraged to get plenty of rest, drink lots of clear liquids, and use Tylenol or Ibuprofen (unless contraindicated) for fever and comfort. Patient also educated on other symptomatic management techniques. To be seen in 7-10 days if no improvement; sooner if worsening of symptoms. Patient advised of potential red flags and when appropriate report to the ED. Patient verbalized understanding of all the above. Orders Orders: Coding Level of Care Code Off vis,est,level 3 Diagnoses Acute pharyngitis, unspecified etiology J02.9 Pharyngitis/tonsillitis etiology: unspecified etiology 12/27/17 1149 <Electronically signed by Freddie ALAN> Date Freddie ALAN Cosigner Signature: Date (if applicable) CC: URINALYSIS, COMPLETE Collected: 12/11/2017 Status: F Source: [facility] 11:30 AM [facility] REPOSITORY Order Comment: How was Urine Obtained? DIRECTOR OF CRITICAL CARE TO SPECIFY TYPE CODE TESTS RESULT OUT OF RANGE REFERENCE UNITS LAB L400.3000 Yellow COLOR Normal Yellow LAB L400.3050 Clear Normal CLARITY Sl. Cloudy LAB L400.3200 Normal mg/dl Normal GLUCOSE, UR Normal LAB L400.3300 Negative mg/dL Normal BILIRUBIN URINE Negative LAB L400.3400 Negative mg/dl Normal KETONE UR Negative LAB L400.3465 1.002-1.030 Normal SP.GR. DIPSTX 1.015 LAB L400.3550 5.0 - 8.0 pH UR Normal 6.5 LAB L400.3600 Negative mg/dl PROT Normal DIPSTX Negative LAB L400.3700 Normal mg/dl Normal UROBILI Normal LAB L400.3750 Negative Normal NITRITE UR Negative LAB L400.3780 Negative /ul Normal OCCULT BLOOD-UR Negative LAB L400.3800 Negative /ul High LEUK 25 ESTERASE LAB L400.4050 0-5 /hpf WBC 0 Normal SEEN LAB L400.4100 0-5 /hpf 0 Normal RBC-UA SEEN LAB L400.4150 5-10 /hpf SQUAM Normal EPI 0-5 SEEN LAB L400.4300 None Seen /hpf 0 Normal BACTERIA SEEN LAB L400.4350 <or=2+ /hpf 0 Normal MUCUS, URINE SEEN Performed By: #### L400.0001 #### [facility] [address] [place], [place], [id number] CBC-COMPLETE BLOOD CNT Collected: 11/03/2017 Status: F Source: [facility] NO DIFF 10:22 AM [facility] REPOSITORY TYPE CODE TESTS RESULT OUT OF RANGE REFERENCE UNITS LAB L100.1000 4.4-11.0 K/mm3 Normal WBC 6.2 LAB L100.1200 4.2-5.4 M/mm3 Low RBC 3.59 LAB L100.1300 12.0-15.0 g/dl Low HGB 10.5 LAB L100.1400 37-47 % Low HCT 31.8 LAB L100.1500 81-99 fL Normal MCV 88.6 LAB L100.1600 27.0-32.0 pg Normal MCH 29.2 LAB L100.1700 32-36 g/gl Normal MCHC 33.0 LAB L100.1810 11.6-14.6 % High RDW CV 15.1 LAB L100.1820 35.1-43.9 fl High RDW SD 48.4 LAB L100.1900 150-450 K/mm3 Normal PLT 184 LAB L100.2000 6.2-12.0 fl Normal MPV 11.0 Performed By: #### L100.0500 #### [facility] [address] [place], [place], [id number] GLUCOSE CHALLENGE GEST Collected: 11/03/2017 Status: F Source: [facility] 1H 50G 10:22 AM [facility] REPOSITORY TYPE CODE TESTS RESULT OUT OF RANGE REFERENCE UNITS LAB L501.0250 70-140 mg/dL Normal GLU GEST 82 50g 1H Performed By: #### L501.0250 #### [facility] [address] [place], [place], [address] ANTIBODY SCREEN Collected: 11/03/2017 Status: F Source: [facility] 10:22 AM [facility] REPOSITORY TYPE CODE TESTS RESULT OUT OF RANGE REFERENCE UNITS LAB B100.4000 Normal Antibody NEGATIVE Screen Performed By: #### B100.4000 #### [facility] [address] [place], [address] URGENT CARE VISIT Observed: 10/25/2017 Status: F Source: [facility] REPORT 6:27 PM [facility] [address] [place] [address] [address] [place] [address] OFFICE VISIT Date of Service: 10/24/17 MR#: [id number] Acct: [id number] Name: CRISTY GREEN Rep #: [id number] : 1990 Provider: Freddie ALAN Age/Sex: 27/F Location: [facility] Status: Signed Intake Vital Signs10/24/17 Height 5 ft 5.5 in Intake Visit Reasons: COUGH, SNEEZING, SORE THROAT Allergies No Known Allergies Allergy (Verified 10/24/17 15:21) Medications Vits [Prenatabs FA ] 1 tab PO DAILY 09/25/15 [History Confirmed 10/24/17] Sertraline HCl [Zoloft] 50 mg PO DAILY #30 tab 01/29/16 [Rx Confirmed 10/24/17] azithromycin 250 mg tablet See Label Instructions PO .COMPLEX #6 tab 10/24/17 [Rx Confirmed 10/24/17] docusate sodium 100 mg capsule PO 30 Days #60 10/24/17 [History Confirmed 10/24/17] linaclotide 145 mcg capsule 145 mcg PO DAILY 10/24/17 [History Confirmed 10/24/17] PFSH Medical History Asthma (Acute) Migraines (Acute) (Acute) SOB (shortness of breath) (Acute) Weight loss (Acute) Surgical History Hx of hand surgery (Acute) Social History Smoking Status: Current some day smoker alcohol intake: never HPI HPI Details: CRISTY GREEN, is a 27 F who presents to the office today for cough and nasal pressure/pain for the past 5-6 days. Patient states that she developed nasal congestion and pressure approximately 8-9 days ago which has recently over the past 3-4 days developed into a nonproductive cough. She denies hemoptysis, shortness of breath or difficulty breathing. No fever, chills, sweats. No nausea, vomiting, diarrhea. She has not tried any medications for this current episode. No other associated symptoms or alleviating/aggravating factors. ROS Const Constitutional: No fever(s), chills, night sweats, headache(s) or abnormal sleep pattern ENT ENT: Positive for nasal congestion, sinus pressure, sinus pain and nasal discharge; no headache(s), ear pain or sore throat Resp Respiratory: Positive for cough Cough: Yes non-productive; no shortness of breath, hemoptysis or wheezing Cardio Cardiology: No shortness of breath, irregular heart rhythm or fast heart rate Neuro Neurology: No headache(s) or confusion Psych Psychiatric: No abnormal sleep pattern, No confusion Aller/Imm Allergy/Immunologic: No wheezing Exam Const General: cooperative, healthy appearing [facility] Head: normal to inspection Ears: hearing grossly normal bilaterally, TM's normal bilaterally, EAC's normal Nose: nasal discharge purulent Face and sinus: sinus tenderness frontal and maxillary Mouth: oral mucosae normal Throat: abnormal tonsil bilaterally, postnasal drainage Resp Effort AND Inspection: normal respiratory effort Auscultation: Bilateral: Clear to Auscultation Cardio Palpation: normal PMI Rate: regular rate Rhythm: regular rhythm Neuro General: alert, CN's II-XI intact bilaterally Psych Appearance: grossly normal Mental Status: mental status grossly normal Assessment AND Plan Problems 1. Acute non-recurrent frontal sinusitis J01.10 Plan Azithromycin as prescribed today. Encouraged to get plenty of rest, drink lots of clear liquids, and use Tylenol or Ibuprofen (unless contraindicated) for fever and comfort. Patient also educated on other symptomatic management techniques. To be seen in 7-10 days if no improvement; sooner if worsening of symptoms. Patient advised of potential red flags and when appropriate report to the ED. Patient verbalized understanding of all the above. This note was generated with [employer] dictation software. It may contain incorrect words, spelling, and punctuation that were not noted in checking the note before signing. Medications New: azithromycin take 500 mg today (day 1), then 250 mg for 4 days (days 2-5) P DAYANNA Nunez O Discontinued: Coding Level of Care Code Off vis,new,level 3 Diagnoses Acute non-recurrent frontal sinusitis J01.10 Recurrence: non-recurrent Sinusitis location: frontal 10/25/17 1827 <Electronically signed by Freddie ALAN> Date Freddie ALAN Cosigner Signature: Date (if applicable) CC: DOWNTIME REPORT Observed: 09/22/2017 Status: F Source: [facility] 2:05 PM [facility] REPOSITORY [facility] Medical Records Department [address] [place] [address] Downtime Report MR#: [id number] Acct: [id number] Name: CRISTY GREEN Rep #: [id number] : 1990 27 From: Omi Antonio PCP: Status: REG CLI This patient was seen during an EMR downtime September 05, 2017 - September 12, 2017. This patient may have a combination of paper and electronic documentation or all paper documentation. All documentation is viewable within the e-chart portion of [email or web address] for each patient visit. Observed: 09/12/2017 Status: F Source: [facility] CULTURE, URINE 2:00 PM [facility] REPOSITORY Urine Culture ORGANISM 1: Lactobacillus species [place] Count >100,000 Performed By: #### M100.0650 #### [facility] [address] [place], [address] INITAL EVALUATION (1) Observed: 08/09/2017 Status: F Source: [facility] - PT 8:55 AM [facility] REPOSITORY [facility] [address] [place], [place] [address] Fax REHABILITATION SERVICES INITIAL EVALUATION MR#: [id number] Acct: [id number] Name: CRISTY GREEN Rep #: [id number] : 1990 26 From: Pablo Storey DPT, OCS, CSCS Referring Dr.: Franck Mendenhall MD Status: REG RCR Insurance: [employer] [facility] SELF PAY INSURANCE Patient's Visit Information CRISTY GREEN is a 26 year old F referred to Physical Therapy by Camron Mendenhall with a diagnosis of vertigo. Date of Evaluation: 08/05/17 Physical Therapist: Pablo Storey DPT, OC - Visit Plan Frequency: 1x/Week Duration: 4-6 Weeks Plan: Treated with L Vanessa today. f/u in a week to recheck positional and progress to adaptation if needed. Monitor test results. - Subjective Subjective: I have vertigo. Not sure why. Diagnosed at ER 3 yrs ago but no real testing. Every couple months for 3 years get s lightheaded, nauseous and dizzy and blacks out for a couple minutes. No real pattern to it. It is more frequent now that she is 3-4 times per month. Has happened at work, doing laundry and once just lying down. Characterized as spinning and double vision and lightheadedness. OB(Dr. ordonez) sent to Dr Mendenhall who sent for PT. No real testing. Sleeping OK. Works at [employer] thru and is doing ok there. Home life is normal except when it happens and she takes it easy for a couple minutes. Hobbies: one year old girl. Has not come on when she is awake. No steps at home. No falls recently, can tell when it is coming on and can sit down. Last incident of blacking out 3 months ago, dizzyness is 3-4x per month and needs to sit down. - Objective L hallpike georgina slightly dizzy, R hallpike -, no nystagmus. Roll negative. treated with L Vanessa and post Vanessa instruction. Got dizzy again with R roll portion of treatment. Balance is good, slight dizzyness with horiz and vertical VOR walking but safe. Oculomotor: no nystagmus with gaze or head shake. - skew eye deviation. - head thrust. normal convergence. pursuit and saccades are nromal. VOR makes 5/10 dizzy for 25 seconds - Balance Scores Functional Gait Assessment Score: 30 % Disability: 0 CATSIB Score (Max score 120 seconds): 120 - Goals Goal 1:: Abolish dizzyness for period of 3 weeks. Goal Time Frame: 4-6 Weeks Goal 2:: Pt feel dizzyness abolished Goal Time Frame: 4-6 Weeks - Rehabilitation Potential Physical Therapy Diagnosis: questionable BPPV. Not obvious that this is a vestibualr problem, especially the blackouts, but possible and will treat as she is going through other testing. Rehabilitation Potential: Questionable - Anticipated Interventions Patient/Client Instruction: Educate patient on: Condition Other: to abolish dizzyness. Comment: adaptation and positional treatments as helpful. Other: to abolish dizzyness. Thank you for the opportunity to evaluate your patient. For Medicare and Medicare HMO plans, please review the plan of care and approve it. It will need to be FAXED BACK to us at [phone] for Medicare purposes. Please let me know if there are questions or concerns regarding this plan of care. Physician Signature: Date: <Electronically signed by Pablo NEFFT, OCS, CSCS> 08/09/17 0855 CC: Franck Mendenhall MD; Matt Lennon DO EBG Signed For Medicare only, by signing this I certify the plan of care. Physicians Signature Date URINE DRUG SCREEN Collected: 06/22/2017 Status: F Source: ASHLEY (VISTA) 4:13 PM [facility] REPOSITORY Order Comment: List of Drugs Taken or Suspected? UNK TYPE CODE TESTS RESULT OUT OF RANGE REFERENCE UNITS LAB L505.0075 TO BE Normal CONFIRMED Result Comment: CONFIRMATORY TESTING FOR ALL POSITIVE URINE DRUG SCREEN RESULTS WILL ONLY BE SENT OUT UPON PHYSICIAN ORDER. VISTA Urine Drug Screen methods provide only preliminary analytical test results. A more specific alternate chemical method must be used in order to obtain a confirmed analytical result. Gas chromatography/mass spectrometery (GC/MS) is the preferred confirmatory method. Clinical consideration and professional judgement should be applied to any drug of abuse test result, particularly when preliminary positive results are used. URINE TCA TESTING MUST BE ORDERED SEPARATELY. USE TEST MNEMONIC: UTCA LAB L505.5005 VISTA UDS PH 5 Normal LAB L505.5015 <1000 ng/mL AMPHETAMINES Normal NEGATIVE LAB L505.5025 < 200 ng/mL BARBITIURATES Normal NEGATIVE LAB L505.5035 < 200 ng/mL BENZODIAZIPINE Normal NEGATIVE LAB L505.5045 < 300 ng/mL COCAINE Normal NEGATIVE LAB L505.5055 < 500 ng/mL ECSTACY Normal NEGATIVE LAB L505.5065 < 300 ng/mL METHADONE Normal NEGATIVE LAB L505.5075 < 300 ng/mL OPIATES Normal NEGATIVE LAB L505.5085 < 25 ng/mL PCP Normal NEGATIVE LAB L505.5095 < 50 ng/mL THC Normal NEGATIVE Performed By: #### L505.5000, L505.6240 #### [facility] [address] [place], [address] NICOTINE URINE DRUG Collected: 06/22/2017 Status: F Source: ASHLEY SCREEN 4:13 PM [facility] REPOSITORY Order Comment: List of Drugs Taken or Suspected? UNK TYPE CODE TESTS RESULT OUT OF RANGE REFERENCE UNITS LAB L505.6250 TO BE Normal CONFIRMED Result Comment: CONFIRMATORY TESTING FOR ALL POSITIVE URINE DRUG SCREEN RESULTS WILL ONLY BE SENT OUT UPON PHYSICIAN ORDER. The results of Urine Drug Screen methods provide only preliminary analytical test results. A more specific alternate chemical method must be used in order to obtain a confirmed analytical result. Gas chromatography/mass spectrometery (GC/MS) is the preferred confirmatory method. Clinical consideration and professional judgement should be applied to any drug of abuse test result, particularly when preliminary positive results are used. LAB L505.6270 <200 ng/mL Normal COT DRG Negative SCREEN Result Comment: Cotinine is the first-stage metabolite of Nicotine. Performed By: #### L505.5000, L505.6240 #### [facility] [address] [place], [address] CBC W/DIFF, AUTOMATED Collected: 06/22/2017 Status: F Source: ANDERSON 4:13 PM [facility] REPOSITORY TYPE CODE TESTS RESULT OUT OF RANGE REFERENCE UNITS LAB L100.1000 4.4-11.0 K/mm3 Normal WBC 6.5 LAB L100.1200 4.2-5.4 M/mm3 Normal RBC 4.23 LAB L100.1300 12.0-15.0 g/dl Low HGB 11.3 LAB L100.1400 37-47 % Low HCT 35.5 LAB L100.1500 81-99 fL Normal MCV 83.9 LAB L100.1600 27.0-32.0 pg Low MCH 26.7 LAB L100.1700 32-36 g/gl Low MCHC 31.8 LAB L100.1810 11.6-14.6 % High RDW CV 14.8 LAB L100.1820 35.1-43.9 fl High RDW SD 45.3 LAB L100.1900 150-450 K/mm3 Normal PLT 210 LAB L100.2000 6.2-12.0 fl Normal MPV 11.5 LAB L100.2100 47-70 % High NEUT% 79.1 LAB L100.2200 19-41 % Low LY% 15.3 LAB L100.2300 0-10 % Normal MONO% 4.6 LAB L100.2400 0-5 % Normal EO% 0.8 LAB L100.2500 0-1 % Normal BASO% 0.2 LAB L100.2550 0.0-0.9 % Normal IM GRAN % 0.000 Result Comment: IG% - Immature Granulocytes (promyelocytes, myelocytes and metamyelocytes) > 1% indicates that a LEFT SHIFT is Present. LAB L100.2620 2.0-7.7 X10 3/uL Normal Absolute Neut 5.1 LAB L100.2720 0.83-4.51 X10 3/ul Normal Absolute Lymph 0.99 Performed By: #### L100.0100 #### [facility] [address] [facility] [place], [address] URINALYSIS, ROUTINE Collected: 06/22/2017 Status: F Source: ASHLEY (DIPSTICK) 4:13 PM [facility] REPOSITORY Order Comment: How was Urine Obtained? Urine, Random TYPE CODE TESTS RESULT OUT OF RANGE REFERENCE UNITS LAB L400.3000 Yellow COLOR Normal Yellow LAB L400.3050 Clear Normal CLARITY Clear LAB L400.3200 Normal mg/dl Normal GLUCOSE, UR Normal LAB L400.3300 Negative mg/dL Normal BILIRUBIN URINE Negative LAB L400.3400 Negative mg/dl Normal KETONE UR Negative LAB L400.3465 1.002-1.030 Normal SP.GR. DIPSTX 1.015 LAB L400.3550 5.0 - 8.0 pH UR Normal 6.0 LAB L400.3600 Negative mg/dl PROT Normal DIPSTX Negative LAB L400.3700 Normal mg/dl Normal UROBILI Normal LAB L400.3750 Negative Normal NITRITE UR Negative LAB L400.3780 Negative /ul Normal OCCULT BLOOD-UR Negative LAB L400.3800 Negative /ul LEUK Normal ESTERASE Negative Performed By: #### L400.2010 #### [facility] [employer] [place], [address] THYROID STIM HORMONE Collected: 06/22/2017 Status: F Source: ASHLEY (TSH) 4:13 PM [facility] REPOSITORY TYPE CODE TESTS RESULT OUT OF RANGE REFERENCE UNITS LAB L501.9520 0.358-3.74 uIU/mL Normal TSH 2.53 Performed By: #### L501.9520 #### [facility] [address] [place], [address] T AND S-NO Collected: 06/22/2017 Status: F Source: ASHLEY CHARGE W/PNP 4:13 PM [facility] REPOSITORY Order Comment: Reason for Type AND Screen/Red Cells: Surgery? N TYPE CODE TESTS RESULT OUT OF RANGE REFERENCE UNITS LAB B10.0800 O Normal BLOOD NEGATIVE TYPE GEL LAB B100.4050 Normal Ab SCREEN NEGATIVE GEL Performed By: #### B100.7550 #### [facility] [address] [place], [address] RUBELLA IGG Collected: 06/22/2017 Status: F Source: ANDERSON 4:13 PM [facility] REPOSITORY TYPE CODE TESTS RESULT OUT OF RANGE REFERENCE UNITS LAB L509.4000 IU/mL Normal Rubella IgG 86.7 Result Comment: Antibody results Interpretation of Immune Status < 5 IU/ml Presumed Non-immune 5 - < 10 IU/ml Equivocal > or = 10 IU/ml Presumed Immune Performed By: #### L509.4000, L3890.6005 #### [facility] [address] [place], [place], [address] HIV - [facility] Collected: 06/22/2017 Status: F Source: ANDERSON 4:13 PM [facility] REPOSITORY TYPE CODE TESTS RESULT OUT OF RANGE REFERENCE UNITS LAB L3890.6005 Nonreactive Normal HIV - [facility] Non-Reactive Performed By: #### L509.4000, L3890.6005 #### [facility] [address] [place], [address] RPR Collected: 06/22/2017 Status: F Source: ANDERSON 4:13 PM [facility] REPOSITORY TYPE CODE TESTS RESULT OUT OF REFERENCE UNITS RANGE LAB L700.5100 NONREACTIVE Normal RPR NONREACTIVE Performed By: #### L700.5100 #### [facility] [address] [place], [address] HEPATITIS B SURFACE Collected: 06/22/2017 Status: F Source: ANDERSON AG 4:13 PM [facility] REPOSITORY TYPE CODE TESTS RESULT OUT OF RANGE REFERENCE UNITS LAB L3100.0400 Negative Normal HB Negative SURF AG Result Comment: Performed at: - [facility] [address] [id number] Fruit Worker: Janak Cramer PhD, Phone: [phone] Performed By: #### L3100.0390, L3100.0625 #### [facility] (refer to report for specific site) refer to report for address and phone number HEPATITIS C ANTIBODIES Collected: 06/22/2017 Status: F Source: ANDERSON 4:13 PM [facility] REPOSITORY TYPE CODE TESTS RESULT OUT OF RANGE REFERENCE UNITS LAB L3100.0650 0.0-0.9 s/co ratio Normal HEP C AB <0.1 Result Comment: Negative: < 0.8 Indeterminate: 0.8 - 0.9 Positive: > 0.9 The CDC recommends that a positive HCV antibody result be followed up with a HCV Nucleic Acid Amplification test ([id number]). Performed By: #### L3100.0390, L3100.0625 #### [facility] (refer to report for specific site) refer to report for address and phone number CT/NG W[facility] BY PCR Collected: 06/10/2017 Status: F Source: ANDERSON 9:15 AM [facility] REPOSITORY TYPE CODE TESTS RESULT OUT OF RANGE REFERENCE UNITS LAB L8200.2100 Negative Normal Chlam Negative Trac PCR LAB L8200.2200 Negative Normal NG by Negative PCR Performed By: #### L8200.2000 #### [facility] [address] [place], [place], [address] (479) HCG TITER QUANT., Collected: 05/23/2017 Status: F Source: ANDERSON SERUM 10:58 AM [facility] REPOSITORY TYPE CODE TESTS RESULT OUT OF RANGE REFERENCE UNITS LAB L700.8000 <9 non-preg mIU/mL High HCG 402 QUANT. Performed By: #### L700.8000 #### [facility] [address] [place], [address] HCG TITER QUANT., Collected: 05/19/2017 Status: F Source: ANDERSON SERUM 11:41 AM [facility] REPOSITORY TYPE CODE TESTS RESULT OUT OF RANGE REFERENCE UNITS LAB L700.8000 <9 non-preg mIU/mL High HCG 51 QUANT. Performed By: #### L700.8000 #### [facility] [address] [place], [place], [address] PAP I-G W/RFX HRHPV Collected: 05/02/2017 Status: F Source: ANDERSON 10:20 AM [facility] REPOSITORY Order Comment: CYTOLOGY INFORMATION: - CLINICAL INFORMATION: - DATE LMP/MENOPAUSE: LMP/ 04/23/17 - COLLECTION VIAL: Thin Prep Vial - CHEMICAL PROCESS ANALYST SOURCE: CERVICAL/ENDOCERVICAL - COLLECTION TECHNIQUE: BRUSH/SPATULA Specimen Comment: [id number] Specimen Comment: No. of containers..01 ThinPrep Vial TYPE CODE TESTS RESULT OUT OF RANGE REFERENCE UNITS LAB L7400.0800 . Normal DIAGN Comment Result Comment: NEGATIVE FOR INTRAEPITHELIAL LESION AND MALIGNANCY. PREDOMINANCE OF COCCOBACILLI CONSISTENT WITH SHIFT IN VAGINAL ROBERTA IS PRESENT. CELLULAR CHANGES ASSOCIATED WITH INFLAMMATION ARE PRESENT. LAB L7400.0900 . Normal ADEQ Comment Result Comment: Satisfactory for evaluation. Endocervical and/or squamous metaplastic cells (endocervical component) are present. LAB L7400.1400 . Normal PERFORM Comment Result Comment: Ariadna Ramos, Radioactive Waste Disposal Dispatcher (ASCP) LAB L7400.1720 . Normal Path prov. Comment ICD9 Result Comment: R87.5 LAB L7400.2575 . Normal TEST METHOD Comment Result Comment: This liquid based ThinPrep(R) pap test was screened with the use of an image guided system. LAB L7400.2600 . Normal . COMM LAB L7400.2700 . Normal PAPSMR Comment Result Comment: The Pap smear is a screening test designed to aid in the detection of premalignant and malignant conditions of the uterine cervix. It is not a diagnostic procedure and should not be used as the sole means of detecting cervical cancer. Both false-positive and false-negative reports do occur. LAB L7400.2800 . Normal HPV RFLX Comment Result Comment: The HPV DNA reflex criteria were not met with this specimen result therefore, no HPV testing was performed. Performed at: [address] [id number] Fruit Worker: Janine Nunez MD, Phone: [phone] Performed By: #### L7400.0350 #### [facility] (refer to report for specific site) refer to report for address and phone number ALLERGIES ALLERGIES DATE TYPE / CODE NAME / CODE REACTION SEVERITY SOURCE 12/27/2017 Drug No Known Unknown [place] Allergy/[id number](S Allergies/F0 [facility] NOMED CT) [id number]([facility]) Repository 04/02/2005 DRUG BANANA INTOLERANCE [place] INGREDI/[id number]([facility] NOMED CT) [place] Repository 04/02/2005 Animal/723374975(SN CATS ITCHING [place] OMED [facility]) [facility] [place] Repository 04/02/2005 Animal/[id number](SN DOGS ITCHING [place] OMED CT) [facility] Main [place] Repository 04/02/2005 Environ/114974946(S DUST MITES ITCHING [place] NOMED CT) Clinic Main [place] Repository 04/02/2005 Miscellaneous OTHER ITCHING [place] Allergy/684512009(S [facility] NOMED CT) [place] Repository 04/02/2005 DRUG GRASS POLLEN ITCHING [place] [facility] [place] Repository ENCOUNTERS ENCOUNTERS ADMIT/DISCHARGE ACCOUNT ADMITTING ENCOUNTER LOCATION SOURCE NUMBER CLASS 04/07/2018 [id number] [facility] ing:[facility] Repository 03/15/2018 [id number] [facility] ing:[facility] Repository 01/20/2018/01/23/20 [id number] Raghu Ordonez Inpatient [address] ing:WPRoom: Repository TL211Amr: 1 12/30/2017 [id number] [facility] ing:LABSPEC Repository 12/28/2017/12/30/19 [id number] Ambulatory [address] Repository 12/27/2017 [id number] [facility] ing:LABSPEC Repository 12/27/2017/12/28/19 [id number] Ambulatory BMSBuilding:B [place] [facility] Repository 12/11/2017/12/12/19 [id number] Ambulatory [address] ing:WPOUT Repository 11/03/2017 [id number] [facility] ing:WOBLAB Repository 10/24/2017/10/25/19 [id number] Ambulatory BMSBuilding:B [place] [address] [facility] Repository 09/12/2017 [id number] [facility] ing:LABSPEC Repository 08/19/2017 [id number] [facility] ing:PSN Repository 08/08/2017 [id number] Ambulatory [facility] ing:MRI Repository 08/05/2017/08/06/19 [id number] Ambulatory [address] ing:PT Repository 06/22/2017 [id number] Ambulatory [facility] ing:WOBLAB Repository 06/10/2017 [id number] [facility] ing:LABSPEC Repository 05/23/2017 [id number] Ambulatory [facility] ing:WOBLAB Repository 05/19/2017 [id number] [facility] ing:WOBLAB Repository 05/02/2017 [id number] [facility] ing:LABSPEC Repository PAYERS PAYERS ENCOUNTER GUARANTOR PAYER SUBSCRIBER SOURCE 04/07/2018 CRISTY BROWNUA L [place] [id number] Insurance:HEALTH PLAN [facility]: [facility] [id number] [address]Tel: DELANOPolicy Number: Repository [id number] (HP) Date: [place], [place] [address]QE: 04/07/2018 Secondary NOT GIVENUNK [place] Insurance:SELF PAY [facility] Number: Effective Repository Date:2018-04-07 03/15/2018 CRISTY BROWNUA L [place] [id number] Insurance:HEALTH PLAN [facility]: [facility] [id number] [id number]: DELANOPolicy Number: Repository [id number] (HP) Date: [place], [place] [address]IV: 03/15/2018 Secondary NOT GIVENUNK [place] Insurance:SELF PAY [facility] Number: Effective Repository Date:2018-03-15 01/20/2018 CRISTY NIELSEN L [place] [id number] Insurance:HEALTH PLAN [facility]: [facility] [id number] [facility] [address]Yif: VALLEYPolicy Number: Repository [id number] (HP) Date: [place], [place] [address]AV: 01/20/2018 Secondary NOT GIVENUNK [place] Insurance:SELF PAY [facility] Number: Effective Repository Date:2017-12-15 12/30/2017 CRISTY Hirsch Primary Jonny L [place] [id number] Insurance:[facility]AN [facility] [id number] [place] [address]Tel: VALLEYPolicy Number: Repository [id number] (HP) Date: [place], [place] [address]DN: 12/30/2017 Secondary NOT GIVENUNK [place] Insurance:SELF PAY [facility] Number: Effective Repository Date:2017-12-30 12/27/2017 CRISTY Hisrch Primary Jonny L [place] [id number] Insurance:HEALTH PLAN MusselmanDOB: Community [facility] MARILYN, [facility] [id number] [place] [address]Tel: VALLEYPolicy Number: Repository [id number] (HP) Date: [place], [place] [address]WW: 12/27/2017 Secondary NOT GIVENUNK [place] Insurance:SELF PAY [facility] Number: Effective Repository Date:2017-12-27 12/27/2017 CRISTY Hirsch Primary Jonny L [place] [id number] Insurance:[facility] [id number] [place] [address]Tel: VALLEYPolicy Number: Repository [id number] (HP) Date: [place], [place] [address]IU: 12/27/2017 Secondary NOT GIVENUNK [place] Insurance:SELF PAY [facility] Number: Effective Repository Date:2017-12-27 12/11/2017 CRISTY Joycelyn Primary Jonny L [place] [id number] Insurance:HEALTH PLAN MusselmanDOB: Community WILLOW RDSHREVE, [facility] [id number] Hospital [address]Uaz: VALLEYPolicy Number: Repository [id number] (HP) Date: [place], [place] [address]LG: 12/11/2017 Secondary NOT GIVENUNK [place] Insurance:SELF PAY [facility] Number: Effective Repository Date:2017-12-11 11/03/2017 CRISTY Joycelyn Primary Jonny L [place] [id number] Insurance:HEALTH PLAN MusselmanDOB: Community [facility] RDSHREVE, [facility] [id number] [place]ille [id number]: VALLEYPolicy Number: Repository [id number] (HP) Date: [place], [place] [address]CF: 11/03/2017 Secondary NOT GIVENUNK [place] Insurance:SELF PAY [facility] Number[facility] Effective Repository Date:2017-11-03 10/24/2017 CRISTY Joycelyn Primary Jonny L [place] [id number] Insurance:HEALTH PLAN MussmanDOB: Community WILLOW RDSHREVE, [facility] [id number] Hospital [address]Eny: VALLEYPolicy Number: Repository [id number] (HP) Date: [place], [place] [address]RW: 10/24/2017 Secondary NOT GIVENUNK [place] Insurance:SELF PAY [facility] Number: Effective Repository Date:2017-10-24 09/12/2017 Cristy Joycelyn Primary Jonny L [place] [id number] Insurance:HEALTH PLAN MusselmanDOB: Community [facility] RDSHREVE, [facility] [id number] Hospital [address]Eln: VALLEYPolicy Number: Repository [id number] (HP) Date: [place], [place] [address]AO: 09/12/2017 Secondary NOT GIVENUNK [place] Insurance:SELF PAY [facility] Number: Effective Repository Date:2017-09-12 08/19/2017 Cristy Hirsch Primary Jonny L [place] [id number] Insurance:[facility] PLAN [facility]OW SELENEEVE, [facility] [id number] Hospital [address]Wgv: VALLEYPolicy Number: Repository [id number] (HP) Date: [place], [place] [address]FR: 08/19/2017 Secondary NOT GIVENUNK [place] Insurance:SELF PAY [facility] Hospital Number: Effective Repository Date:2017-08-01 08/08/2017 Cristy Hirsch Primary Jonny L [place] [id number] Insurance:HEALTH PLAN [facility] Community WILLOW SARAHE, [facility] [id number] Hospital [address]Yab: VALLEYPolicy Number: Repository [id number] (HP) Date: [place], [place] [address]ZE: 08/08/2017 Secondary NOT GIVENUNK [place] Insurance:SELF PAY [facility] Number: Effective Repository Date:2017-08-01 08/05/2017 Cristy Hirsch Primary Jonny L [place] [id number] Insurance:HEALTH PLAN [facility]: Community [facility] [id number] Hospital [address]Rat: VALLEYPolicy Number: Repository [id number] (HP) Date: [place], [place] [address]YO: 08/05/2017 Secondary NOT GIVENUNK [place] Insurance:SELF PAY [facility] Number: Effective Repository Date:2017-07-29 06/22/2017 Cristy Joycelyn Primary Jonny L [place] [id number] Insurance:HEALTH PLAN MusselmanDOB: Community [facility] RDSHREVE, [facility] [id number] Hospital [address]Amy: VALLEYPolicy Number: Repository [id number] () Date: [place], [place] [address]FV: 06/22/2017 Secondary NOT GIVENUNK [place] Insurance:SELF PAY [facility] Number: Effective Repository Date:2017-06-22 06/10/2017 Cristy Joycelyn Primary Jonny L [place] [id number] Insurance:HEALTH PLAN MusselmanDOB: Community [facility] [address], [facility] [id number] [place] [address]Tel: VALLEYPolicy Number: Repository [id number] () Date: [place], [place] [address]YL: 06/10/2017 Secondary NOT GIVENUNK [place] Insurance:SELF PAY [facility] Number: Effective Repository Date:2017-06-10 05/23/2017 Cristy Joycelyn Primary Jonny L [place] [id number] Insurance:HEALTH PLAN MusselmanDOB: Community [facility] [address], [facility] [id number] Hospital [address]Riv: VALLEYPolicy Number: Repository [id number] () Date: [place], [place] [address]VT: 05/23/2017 Secondary NOT GIVENUNK [place] Insurance:SELF PAY [facility] Number: Effective Repository Date:2017-05-23 05/19/2017 Cristy Joycelyn Primary Jonny L [place] [id number] Insurance:HEALTH PLAN MusselmanDOB: Community [facility] [address]SH[address], [facility] [id number] Hospital [address]Nno: VALLEYPolicy Number: Repository [id number] () Date: [place], [place] [address]CB: 05/19/2017 Secondary NOT GIVENUNK [place] Insurance:SELF PAY [facility] Number: Effective Repository Date:2017-05-19 05/02/2017 Cristy Hirsch [facility] Jonny L [place] [facility]Cent[facility] [id number] Insurance:HEALTH PLAN MussmanDOB: Community WILLOW MARILYN, [facility] [id number] Hospital [address]Gwg: VALLEYPolicy Number: Repository [id number] () Date: [place], [place] [address]PL: 05/02/2017 Secondary NOT GIVENUNK [place] Insurance:SELF PAY [facility] Number: Effective Repository Date:2017-05-02
== END ==
PROVIDERS: Referring Provider Obstetrics & Gynecology; Visit Provider Obstetrics & Gynecology
DX: Z30.430 Encounter for insertion of intrauterine contraceptive device (principal); Z11.3 Encounter for screening for infections with a predominantly sexual mode of transmission
CPT/HCPCS: 87491; 87591

== ENCOUNTER → 2018-04-07 15:45 | Outpatient (CLI) | payer OTHER, SELFPAY ==
[2018-01-20 10:20] VITALS: BMI 40.6
[2018-04-11 13:54] LABS: HPV Reflexed? NOT INDICATED
== END ==
PROVIDERS: Referring Provider Obstetrics & Gynecology; Visit Provider Obstetrics & Gynecology
DX: Z12.4 Encounter for screening for malignant neoplasm of cervix (principal)
CPT/HCPCS: 88175; G0145

== ENCOUNTER → 2018-08-07 12:48 | Outpatient (CLI) | payer OTHER, SELFPAY ==
[2018-08-03 14:52] VITALS: BMI 33.4
--- NOTE | 2018-08-07 12:51 | EKG12_ITS ---
Test Reason : SYNCOPE Blood Pressure : / mmHG Vent. Rate : 060 BPM Atrial Rate : 060 BPM P-R Int : 168 ms QRS Dur : 102 ms QT Int : 426 ms P-R-T Axes : 013 011 -01 degrees QTc Int : 426 ms Normal sinus rhythm Normal ECG No previous ECGs available Confirmed by BECKY CISSE, OGSIA ([id number]), multimedia editor BIPIN PARISI ([id number]) on 08/08/2018 1:55:31 PM Referred By: Matt Lennon Confirmed By:GOSIA PENA MD
== END ==
PROVIDERS: Family Provider Family Medicine; PCP Family Medicine; Referring Provider Family Medicine; Visit Provider Family Medicine
DX: R55 Syncope and collapse (principal)
CPT/HCPCS: 93005

== ENCOUNTER → 2018-09-20 09:51 | Outpatient (CLI) | payer OTHER, SELFPAY ==
[2018-08-03 14:52] VITALS: BMI 33.4
[2018-09-20 10:29] LABS: hCG Titer Quant., Serum < 1 mIU/mL (1-3)
== END ==
PROVIDERS: Visit Provider Obstetrics & Gynecology
DX: R68.89 Other general symptoms and signs (principal); Z32.01 Encounter for pregnancy test, result positive; Z97.5 Presence of (intrauterine) contraceptive device
CPT/HCPCS: 36415; 84702

== ENCOUNTER → 2018-12-01 07:28 | Outpatient (CLI) | payer OTHER, SELFPAY ==
[2018-11-09 14:02] VITALS: BMI 33.4
--- NOTE | 2018-12-01 10:12 | EEG ---
- Electroencephalogram Date of service 12/01/2018 History EEG is being done in this 28 yr F to rule out seizures EEG Description: This is an 18 channel EEG with 10-20 lead placement system. Bipolar montages, and Referential montages were reviewed. Photic stimulation and Hyperventilation were performed. The posterior dominant rhythm is 10 HZ synchronous, symmetric, reacting to eye opening and closing. Photo stimulation elicited normal driving response but no abnormal photoparoxysmal response, Hyperventilation did not elicit any abnormal photoparoxysmal response. Sleep was identified. There is no abnormal background slowing noted. There was no epileptiform discharges or electrographic seizures noted during this recording. Per tech documentation patient had multiple events of leg movements and snoring during sleep and drowsiness. EEG Interpretation This is a normal awake and asleep EEG. There is no epileptiform discharges or electrographic seizures noted during the record. Per tech documentation patient had multiple events of leg movements and snoring during sleep and drowsiness. Patient should be evaluated for sleep apnea and periodic leg movements as outpatient if not done already. Defer to PCP. Clinical correlation is advised.
== END ==
PROVIDERS: Family Provider Nurse Practitioner Family; PCP Nurse Practitioner Family; Referring Provider Nurse Practitioner Family; Visit Provider Nurse Practitioner Family
DX: R55 Syncope and collapse (principal)
CPT/HCPCS: 95819

== ENCOUNTER → 2019-07-02 | Outpatient (CLI) | payer OTHER, SELFPAY ==
[2019-07-02 12:21] VITALS: BMI 29.3
== END | disposition home or self-care (01) ==
LOC: LABSPEC 14:26
PROVIDERS: PCP Nurse Practitioner Family; Visit Provider Obstetrics & Gynecology
DX: R30.0 Dysuria (principal); R10.2 Pelvic and perineal pain
CPT/HCPCS: 87070; 87077; 87086; 87088; 87186; 87205

== ENCOUNTER 2019-10-11 09:00 | Outpatient (RCR) | payer OTHER, SELFPAY ==
[2019-08-07 11:38] VITALS: BMI 29.3
--- NOTE | 2019-10-11 09:05 | BH.SGPN.GN ---
Behaviors/Verbalizations/Mental Status: [] Eye contact is good. Motor activity is appropriate. Appearance is casual. Speech is Appropriate. Mood is anxious. Affect is congruent. Thoughts are linear and logical. No evidence of psychosis. Reviewed daily check in sheet and no reports of suicidal ideations or intent. Client Response/Progress/Benefit: [] Pt participated at times during the group discussion. Emotion for today is nervous. Shared with the group that today is her first day in IOP. Recently diagnosed with Bipolar. Had a couple questions to peers with that dx in the group. Seeking education and some reassurance that her symptoms will improve. Began IOP to learn coping skills to better manage her mood. Notes that she often jumps the gun and takes the offensive with people. No progress noted as this was her first day. Benefited from group support, encouragement, and feedback. Will continue in IOP to maintain safety, prevent decompensation, and stabilize mood. Narrative Note: []
--- NOTE | 2019-10-11 10:10 | BH.SGPN.GN ---
Behaviors/Verbalizations/Mental Status: [] Client alert and oriented, casually dressed and appropriately groomed. Eye contact fair to good. Motor activity appropriate. Speech WNL. Affect congruent, mood depressed. Thoughts linear, logical, no signs of hallucinations or delusions. Client Response/Progress/Benefit: []Client new to IOP program. She remained attentive and actively listening throughout, providing some input. Appearing to connect during discussion on the quote and how distorted thought patterns can reinforce mental health symptoms AEB nodding along with participant comments. Client engaged throughout the discussion on different types of thought distortions and noted that she connects with emotional reasoning and overgeneralizing. Provided an example of recently struggling with the thought ?They?ll never understand me? and identified this as overgeneralizing. Appeared to benefit from increasing awareness of cognitive distortions and how they can impact emotions and behaviors. Progress limited as it was client?s first day. Will continue IOP tx to prevent decompensation, improve healthy skill application, and increase mood stability. Narrative Note: []
--- NOTE | 2019-10-11 11:12 | BH.SGPN.GN ---
Behaviors/Verbalizations/Mental Status: []Client alert and oriented, neatly dressed and groomed. Eye contact good. Motor activity appropriate. Speech within normal limits. Affect unable to gather due to wearing a mask for COVID-19 protocol, mood depressed and anxious. Thoughts linear, logical, no signs of hallucinations or delusions. Client Response/Progress/Benefit: []Client active participant as evidenced by client providing input throughout session, taking notes, and completed worksheet. Client engaged in discussion about discussing additional cognitive distortions. Client shared examples of distorted thoughts she has had such as I feel like a disappointment so I must be one.? Client engaged in discussion about how to reframe distorted thoughts to a more rational statement. Client participated in the group activity of practicing thought challenging. Client and her small group successfully challenge two negative thoughts and reframed them using the strategies discussed. Client selected the strategy of positive affirmations to help client challenge her negative thinking. Client seemed to benefit from practicing identifying and reframing distorted thoughts. Client to continue IOP level of care to increase healthy coping, improve mood stability, and prevent decompensation. Narrative Note: []
--- NOTE | 2019-10-15 09:00 | BH.SGPN.GN ---
Behaviors/Verbalizations/Mental Status: []Client alert and oriented, casually dressed and groomed. Eye contact good. Motor activity appropriate. Speech WNL. Affect unable to gather due to wearing a mask for COVID protocol. Mood euthymic. Thoughts linear, no signs of hallucinations or delusions. Reviewed client's daily symptom tracker, no risk noted for suicidal ideations or intent. Client Response/Progress/Benefit: []Client responded well to session, receptive to feedback from therapist. Client reports feeling blessed today. Client shared her family had an intervention with her last night and called me out on some behaviors. Client stated her family told client they were worried about client falling back into unhealthy coping. Client admitted that she had been not coming to IOP and felt like she was getting better, so I didn't need to use those skills. Therapist reminded client of the importance of maintenance. Client's positives today were recognizing that she has a loving family and not giving up on herself. Appeared to benefit from reflecting on the benefits of confrontation. Will continue IOP tx to prevent decompensation, improve emotional regulation skills, and reduce mood instability. Narrative Note: []
--- NOTE | 2019-10-15 10:12 | BH.SGPN.GN ---
Behaviors/Verbalizations/Mental Status: []Client alert and oriented, casually dressed. Eye contact fair. Motor activity appropriate. Speech within normal limits. Affect could not be assessed due to pt wearing a mask as a precaution during the Covid-19 pandemic. Mood anxious and dysthymic. Thoughts linear, logical, no signs of hallucinations or delusions. Client Response/Progress/Benefit: []Pt receptive to session, listening attentively to others and providing input when elicited by therapist. Appeared to listen as the group brainstormed the positive and negative aspects of stress on physical and mental health. Group worked together to define stress and provided input during discussion about eustress vs distress. Client identified her stressors include: low self-esteem, bills, mental health, people pleasing, and not having a job. Client states when she is overwhelmed with stress she becomes like a firecracker and can easily last out at others. Seemed to benefit from increased awareness of her current stressors and impact of too much stress on the mind and body. Recommended to continue IOP tx to increase healthy skills, challenge negative and distorted thoughts, and prevent decompensation. Narrative Note: []
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
--- NOTE | 2019-10-17 11:44 | BH.NA ---
Physical Data - Vital Signs Pulse Rate: 80 Blood Pressure: 112/79 - Height/Weight Height: 1.65 m - stated Weight:: 88.451 kg - stated Weight in Pounds: 195.0 lbs Nutritional History - Appetite Nutritional Instructions:: If client shows signs of a swallowing problem, weight change of 10 pounds or more in the last month, or is on a diabetic diet, the physician will review and request a dietitian consult, as appropriate. All unintentional weight loss will be referred to the physician for decision on need for dietitian consult. Describe your appetite:: Good Have you noticed a change in your eating habits lately?: Yes - Appetite increased prior, since Abilify stopped appetite returning normal Functional Assessment - Sleep Pattern Describe any problems with sleeping: Client states that she is receiving average sleep, 6-7 hours/night. - Activities Motor Activity:: Functional Sensory/Communication Assess - Vision Problems Do you have any vision problems?: Glasses - Communication Problems Do you have difficulty understanding what people are saying?: No Medical Problems/History - Gastrointestinal Conditions Gastrointestinal: Other (See comments) - IBS - Family History Family History: Family History (Last Reviewed 08/07/19 @ 11:37 by Leighann So) Father Alcoholism Mother Cervical cancer Grandmother Diabetes Hypertension Aunt Heart disease - Additional History Additional comments:: Client states recently diagnosed with manic bipolar and questionable multiple personality disorder. Surgical History - Surgical History Have you had any surgeries? If so, list type and date:: Yes - x2, hand Substance Abuse - Substance Abuse Please describe substance abuse in the last 30 days:: Client states past alcohol consumption occassionally but denies current use. Client states current tobacco use, smokes 1/2PPD d/t stress since psychiatric hospitalization 09/18-09/27/19. States has smoked on and off [id number]. Client denies past or current substance abuse. Client states consumes caffiene daily consisting of tea. Mental Status Summary - Mental Status Significant Findings/Observations on Appearance and Mood:: Client is alert and oriented x4. Client is casually groomed. Client is cooperative with assessment, makes good eye contact during conversation. Client's speech with normal rate and volume, coherent and spontaneous. Client appears mildly depressed during assessment. Client makes logical associations, normal processing. Client denies delusions and hallucinations, none evident. Client appears to have good insight and judgement. Suicide Assessment - Suicidal Ideation Are you currently or have you been suicidal in the past?: Yes - Client states SI in past, denies current SI/HI Suicidal Intentional Rating Scale (SIRS): Suicidal thoughts (past) Physician Notification: If Active suicidal thoughts/Will not contract for safety is checked, contact physician and document in the Physician Notification section below. Past Psychiatric History - MH Treatment Hx Past Psychiatric Medications:: Client states she has been on past psychiatric medications consisting of Abilify and Zoloft. Age of first mental health symptoms: Client states that she was diagnosed with mental health condition at 29yo. Describe (age, circumstance, etc) any past hospitalizations: Client states that she was hospitalized for psychiatric at [facility] 09/18-09/27/19 for SI thoughts. Denies any other psychiatric hospitalizations. Current providers for mental health treatment (counselor, psychiatrist, case management director, etc.): Client states that she is seen by therapist Jon at [facility], Psychiatrist Dr Wilson. Fall Risk Assessment - Age Age: Less than 60 - Mental Status Mental Status: Willing & able to ask for assistance when needed - Physical Status Physical Status: No problems - Impairments Impairments: None - Elimination Elimination: Continent AND independent - Gait or Balance Gait or Balance: Walks independently - Hx of Falls History of falls in the past 6 months: No known history - Medications/Substances Psychotropics:: Antidepressants, Mood stabilizers Medications/substances used within the past 24 hours or ordered to administer: 1-2 of the medications/substances listed above - Total Score Total Points:: 1 RN Summary of Impressions - Impressions Recommendations: Include psychiatric and medical issues, treatment planning recommendations, and discharge planning needs. Impressions: Psychiatric Issues: Bipolar disorder, most recent episode mixed, severe-in partial remission; Generalized anxiety disorder - Level of Care How do the client's current symptoms and functional deficits support need for this level of care?: Client details onset of current episode, stating her symptoms became worse at the end of May. Client states that she has been feeling depressed, like she is on a roller coaster with her moods, crying spells, Suicidal thoughts. Client states that her stressor that triggors her symptoms is her mother when she talks about her mental health condition. Client presented to ER 09/19/19 and admitted to [facility] after SI with methods. IOP will promote gains and prevent further decompensation while providing social support and skills training.
[2019-10-17 12:36] VITALS: BP 112/79; PULSE 80
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
--- NOTE | 2019-10-17 12:53 | BH.DR.ITP ---
Initial Treatment Plan - Patient Information Visit Information: ADMISSION DATE: EXPECTED LOS: 4-6 weeks - Problems/Symptoms Problem #1:: Depression Symptom:: history of suicidal ideation, sadness, irritability, rumination Problem #2:: Anxiety Symptom:: worry, avoidance, nightmares, flashbacks, racing thoughts
--- NOTE | 2019-10-17 15:27 | BH.MDN ---
Multi-Disciplinary Note - Note 45-min Individual Time Started:: 10:10 Date: 10/17/19 Time Stopped:: 10:55
--- NOTE | 2019-10-17 15:29 | BH.MTP ---
Master Treatment Plan - Patient Information Program Physician:: Dr. Reyes Primary Therapist:: Abigail Ruelas - Estimated LOS Estimated LOS (in weeks):: 6
--- NOTE | 2019-10-18 09:05 | BH.SGPN.GN ---
Behaviors/Verbalizations/Mental Status: [] Eye contact is good. Motor activity is appropriate. Appearance is casual. Speech is Appropriate. Mood is euthymic. Affect is full. Thoughts are linear and logical. No evidence of psychosis. No reports of suicidal ideations or intent. Client Response/Progress/Benefit: [] Pt participated when prompted. Emotion for today was eager. Shared that she is feeling more optimistic due to increased interest in her house (family is selling house). Excited that they had an offer. Her goals yesterday was to try an level myself. Believes that she completed this goal as she practiced several coping skills during a time of stress yesterday. Emotions are more stable and she is more confident in her ability to mange her thoughts, behaviors, and emotions. Reports being in good spirits today. Progress noted per pt report. Benefited from group support, encouragement, and feedback. Will continue in IOP to prevent decompensation, increase education/support, and to stabilize mood. Narrative Note: [] This psychotherapy group was provided via telehealth using two-way, real-time interactive telecommunication technology between the patients and the provider.?The interactive telecommunication technology included audio and video.? ?The patient was offered telemedicine as an option for care delivery during the COVID-19 pandemic and consented to this option. ?Patient location: [place] ?Provider located at [facility]
--- NOTE | 2019-10-18 10:12 | BH.SGPN.GN ---
This psychotherapy group was provided via telehealth using two-way, real-time interactive telecommunication technology between the patients and the provider. The interactive telecommunication technology included audio and video. The patient was offered telemedicine as an option for care delivery during the COVID-19 pandemic and consented to this option. Patient location: [place] Provider located at [facility] Behaviors/Verbalizations/Mental Status: []Client alert and oriented, casually dressed. Eye contact fair to good. Motor activity appropriate. Speech within normal limits. Affect congruent, though difficult to assess as pt attending via telehealth option. mood dysthymic. Thoughts linear, logical, no signs of hallucinations or delusions. Client Response/Progress/Benefit: []Client engaged throughout session AEB providing input to discussion and taking notes throughout. Client at times struggling with focus due to becoming distracted by her home environment as client telehealth. Connected with discussion on how coping with external crises by using unhealthy coping skills could result in a personal crisis. Client noted that although it is difficult, ?you can only control your own actions with whatever life throws at you?. Group reported that it is important to have awareness of warning signs which can prevent reaching crisis point. Group identified warning signs for crisis and client completed the personal warning signs worksheet. Client identified personal crisis warning signs to include: impulsivity, high risk behaviors, and distancing self from family/her . Benefited by increasing awareness of crisis and personal warning signs. Progress noted in client increased engagement and insight into own mental health warning signs. Will continue IOP tx to increase healthy coping, improve mood stability, and prevent decompensation. Narrative Note: []
--- NOTE | 2019-10-18 11:11 | BH.SGPN.GN ---
This psychotherapy group was provided via telehealth using two-way, real-time interactive telecommunication technology between the patients and the provider.?The interactive telecommunication technology included audio and video.? ?The patient was offered telemedicine as an option for care delivery during the COVID-19 pandemic and consented to this option. ?Patient location: [place] ?Provider located at [facility] Behaviors/Verbalizations/Mental Status: []Client alert and oriented, casually dressed and groomed. Eye contact good. Motor activity appropriate. Speech within normal limits. Affect congruent. Mood euthymic. Thoughts linear, logical, no signs of hallucinations or delusions. Client Response/Progress/Benefit: []Client responded well to session as evidenced by client listening attentively to others and providing input throughout session. Client identified her warning signs for crisis and gained further awareness of earliest warning signs. Client used the warning signs: increased risk taking, impulsivity, and feeling disconnected for others to create her crisis plan. Client created a crisis action plan to help client better manage warning signs for crisis. Client?s plan included: identifying her boundaries, calling supports, engage in hobbies, and reality checking with supports. Client recognizes that her family can help client set limits for herself and hold client accountable. Client appeared to benefit from creating a crisis action plan and increasing self-awareness. Client to continue IOP tx to prevent decompensation, improve the use of healthy coping skills, and reduce intensity of mood symptoms. Narrative Note: []
--- NOTE | 2019-10-25 09:05 | BH.SGPN.GN ---
Behaviors/Verbalizations/Mental Status: [] Eye contact is good. Motor activity is appropriate. Appearance is casual. Speech is Appropriate. Mood is euthymic. Affect is full. Thoughts are linear and logical. No evidence of psychosis. Reviewed daily check in sheet and no reports of suicidal ideations or intent. Client Response/Progress/Benefit: [] Pt participated at times during the group discussion. Emotion for today is optimistic and misguided. Completed self-care yesterday which was beneficial in helping her manage her emotions. States I'm not letting my emotions take control. Believes that she is focused on making healthy choices. Some stressors and frustrations related to boundaries and her support. Progress noted. Benefited from group support, encouragement, and feedback. Will continue in IOP to maintain safety, prevent decompensation, and stabilize symptoms. Narrative Note: [] This psychotherapy group was provided via telehealth using two-way, real-time interactive telecommunication technology between the patients and the provider.?The interactive telecommunication technology included audio and video.? ?The patient was offered telemedicine as an option for care delivery during the COVID-19 pandemic and consented to this option. ?Patient location: [place] ?Provider located at [facility]
--- NOTE | 2019-10-25 11:20 | BH.SGPN.GN ---
Behaviors/Verbalizations/Mental Status: []Client alert and oriented, casually dressed and groomed. Eye contact good, at times becoming distracted by the home environment. Motor activity appropriate. Speech within normal limits. Affect congruent though difficult to determine as attending via telehealth per COVID-19 protocol options, mood euthymic, agitated. Thoughts linear, logical, no signs of hallucinations or delusions. Client Response/Progress/Benefit: []Client engaged in session AEB listening to discussion, providing some input, and taking notes throughout, mostly passive in participation. Client attentive during the continued discussion on what prevents moving on to the ?next chapter? in our life and the importance of problem-solving solutions to address identified barriers. Continued to remain an active listener as peers brainstormed the components of A,B,C,D,E problem solving method and various strategies for promoting follow-through in each stage. Client identified self-blame as a barrier preventing her from moving to the next chapter in mental health recovery. Shared that by problem-solving this barrier she will feel happier and less guilty about advocating for her own needs. Identified reminding herself ?I don?t have to beat myself up about setting boundaries? as a realistic first step she can take in the problem-solving process. Appeared to benefit from learning about problem solving method and practice applying this to personal barriers identified. Progress noted in client self-report of improved mood and ability to remove toxic supports from her life. Continues to struggle with minimizing and inconsistent follow-through. Will continue IOP tx to prevent decompensation, maintain gains, and continue to promote healthy change behaviors. Narrative Note: []
--- NOTE | 2019-10-31 09:00 | BH.SGPN.GN ---
Behaviors/Verbalizations/Mental Status: []Client alert and oriented, neatly dressed and groomed. Eye contact good. Motor activity appropriate. Speech within normal limits. Affect unable to gather due to wearing a mask for COVID-19 protocol, mood dysthymic. Thoughts linear, logical, no signs of hallucinations or delusions. Reviewed client?s symptom tracker, no risk for suicidal ideation, plan, or intent as of 10/31/19. Client Response/Progress/Benefit: []Client responded well to session, receptive to feedback and attentive. Client reports her emotions are all over the place today. Client admits that she has been withdrawing from IOP and not practicing her coping skills because she thought she did not need them anymore due to feeling better. Client shared last night her family had an intervention with her and I didn't like it in the moment, but I appreciate it now. Client reports she is ready to get back on track with her mental health treatment and listen and apply what I'm learning. Client reported getting to IOP tx today is a positive because client did not want to get out of bed. Client receptive to feedback and encouragement from group on how to recover after setbacks. Appeared to benefit from coming to group rather than isolating and connecting with peers. Client will continue IOP tx to prevent decompensation, improve emotional regulation skills, and increase the use of healthy coping skills. Narrative Note: []
--- NOTE | 2019-10-31 10:15 | BH.SGPN.GN ---
Behaviors/Verbalizations/Mental Status: [] Eye contact is good. Motor activity is appropriate. Appearance is casual. Speech is Appropriate. Mood is anxious. Affect is congruent. Thoughts are linear and logical. No evidence of psychosis. Client Response/Progress/Benefit: [] Pt was an active participant in group discussion and was engaged in group. Pt worked with the group to define growth in terms of mental health wellness and then identified events that can lead to growth which include; change in perspective, increased knowledge, accountability, and support/encouragement. Pt also worked together with peers to identify and define internal and external forces in mental health and their role in growth. Provided insight and suggestions during group psychoeducation on examples and impact of negative/positive internal and external forces. Progress noted in regards to increase knowledge and insight on role of internal/external forces on mental health. Will conitnue in IOP to prevent decompensation, stabilize mood, and improve education. Narrative Note: []
--- NOTE | 2019-10-31 11:14 | BH.SGPN.GN ---
Behaviors/Verbalizations/Mental Status: [] Eye contact is good. Motor activity is appropriate. Appearance is casual. Speech is Appropriate. Mood is euthymic. Affect unable to assess as client wearing a mask per COVID-19 protocol. Thoughts are linear and logical. No evidence of psychosis. Client Response/Progress/Benefit: [] Pt receptive of session, actively engaged in activity and group discussion, as well as willing to complete worksheet. Worked with group to process the challenge activity. Pt identified personal negative forces impacting her mental health progress to include: negative thoughts, toxic supports, lack of motivation, lack of knowledge, and unhealthy distractions. Group then worked together to identify common positive forces in activity and life which help us grow. Pt identified personal positive forces to include: her family, seeking mental health treatment, willingness to ask for help, and organization. Pt was attentive during psychoeducation and appeared to benefit from increased insight on the impact of negative and positive forces on mental wellness. Identified wanting to improve her focus on reducing unhealthy distractions that keep from making progress. Progress limited as pt continues to struggle with consistent attendance and skill application. Pt recommended continued IOP tx to promote healthy change behaviors, improve symptom management, and continue to work on improving healthy boundaries. Narrative Note: []
--- NOTE | 2019-11-02 10:15 | BH.SGPN.GN ---
Behaviors/Verbalizations/Mental Status: []Client alert and oriented, casually dressed and groomed. Eye contact fair to good. Motor activity appropriate. Speech within normal limits. Affect unable to gather due to client wearing a mask as a COVID protocol, mood dysthymic. Thoughts linear, logical, no signs of hallucinations or delusions. Client Response/Progress/Benefit: []Client was a mostly engaged participant AEB providing some input, listening attentively to others, and taking notes. Client appeared to connect with the discussion reviewing importance of learning ways to sit with uncomfortable feelings. She noted that avoiding the uncomfortable can result in more problems later on. Client remained attentive during discussion on the difference between ?normal? anxiety and when anxiety becomes problematic, nodding throughout. Shared relating to the group reflection that problematic anxiety can be identified when you are no longer able to complete simple daily tasks and notice change in physical symptoms as well. Client gained awareness of personal physical symptoms of anxiety which included: headache, stomach problems, restlessness, skin irritation, and fidgeting. Client also identified safety behaviors used when feeling anxious. These safety behaviors included; sleeping, distancing from family/healthy supports, and avoidance. Client appeared to benefit from gaining insight to physical signs of anxiety and personal safety behaviors. Progress variable as client continues to struggle with consistent skill application, though has done well to improve engagement in treatment in the past week. Will continue IOP to increase consistent application of healthy coping skills, continue to improve communication with supports, and prevent decompensation. Narrative Note: []
--- NOTE | 2019-11-02 11:15 | BH.SGPN.GN ---
Behaviors/Verbalizations/Mental Status: [] Eye contact is good. Motor activity is appropriate. Appearance is casual. Speech is Appropriate. Mood is euthymic. Affect is full. Thoughts are linear and logical. No evidence of psychosis. Client Response/Progress/Benefit: [] Pt was an active participant in group discussion and provided insight on group topic. Attentive during psycho-education on mindfulness coping skills and their impact on her mental health wellness. Pt was able to identify self-soothing, mind-based, and body-based coping skills she wants to incorporate into her current coping skills. The skills she choose were baths, long showers, cross stitch, music, humor, though challenging, deep breathing, exercise, and massage. t. Progress noted. Receptive to incorporating new skills. Will continue in IOP to maintain safety, increase healthy coping skills, and prevent decompensation. Narrative Note: []
--- NOTE | 2019-11-02 14:29 | BH.MDN ---
Multi-Disciplinary Note - Note 45-min Individual Time Started:: 09:20 Date: 11/02/19 Time Stopped:: 10:03
--- NOTE | 2019-11-14 15:15 | BH.DS ---
Discharge Summary - Demographics Date of Admission:: 10/17/19 Discharge Date: 11/14/19 Presenting Problems at Admission:: Prior to IOP [facility] to September [facility], [facility]. The patient was diagnosed with bipolar disorder during that admission. When she was admitted to the psychiatric unit, she was having suicidal ideation and erratic moods and conflict with her family. The patient told her family that she wanted to kill herself and her kids by getting in a car accident. Child protective services was notified and is involved. The patient was seen in the [place] emergency room on September 18 and then admitted to the psych unit. Her symptoms had been worsening for several weeks prior to her admission. At that time she was getting in frequent verbal arguments with her family and had mild paranoia about her family not being able to be trusted. She had no hallucinations or outright delusions though. The week after inpatient hospitalization she described her mood as euthymic and denied depression or bowen. She denied anhedonia and stated she enjoyed being with her children and doing cross stitching. She denied any suicidal ideations active or passive and denied any plan. She denied passive thoughts about . She denied homicidal ideation, hallucinations or delusions. She denied any symptoms of bowen now. Discharge Diagnoses:: Bipolar disorder, most recent episode mixed, severe?in partial remission (F 31.77).; Generalized anxiety disorder, Rule out personality disorder of cluster B Reason for Discharge:: Pt was inconsistently attending [facility], no-showed several times and did not return phone calls from [facility] team as a result pt is being discharged from [facility]. - Treatment Progress During Treatment & Response: Progress minimal likely due to pt only attending 7 sessions in the 4 weeks of being admitted to [facility]. When pt did attend her participation was variable at times engaged. Pt struggled with applying the skills outside treatment environment. Pt admitted she thought she was doing better than she actually was, which could have been barrier to consistent attendance. Pt hasn't attended [facility] in the last 1 1/2 weeks. Pt stated she was sick last week, but no showed and would not return calls this week of [facility]. Issues Still to be Addressed:: Pt could benefit from continuing to learn about bipolar disorder, learning warning signs of her different mood states, and learning healthy coping skills. Discharge Recommendations/Instructions:: Pt is recommended to continue invididual counseling with Jon gallo [facility] and Dr. Wilson for medication management at [place]. Discharge Handout: Complete Discharge Handout with client on aftercare options and continuity of care.
== END 2019-11-02 23:59 ==
LOC: BHIOP 09:00
PROVIDERS: PCP Nurse Practitioner Family; Referring Provider Psychiatry & Neurology Psychiatry; Visit Provider Psychiatry & Neurology Psychiatry
DX: F31.77 Bipolar disorder, in partial remission, most recent episode mixed (principal); F41.1 Generalized anxiety disorder; Z79.899 Other long term (current) drug therapy; F17.210 Nicotine dependence, cigarettes, uncomplicated; Z62.810 Personal history of physical and sexual abuse in childhood; Z62.819 Personal history of unspecified abuse in childhood; K58.9 Irritable bowel syndrome, unspecified
CPT/HCPCS: H0035; 90834; 90853

== ENCOUNTER → 2019-10-18 12:32 | Outpatient (CLI) | payer OTHER, SELFPAY ==
[2019-08-07 11:38] VITALS: BMI 29.3
[2019-10-18 13:20] LABS: Absolute Lymphocyte Count 0.95 X10^3/uL (0.83-4.51); Absolute Neutrophil Count 2.3 X10^3/uL (2.0-7.7); Basophil# 0.02 X10^3/uL; Basophil% 0.6 % (0-1); Eosinophil# 0.08 X10^3/uL; Eosinophils% 2.2 % (0-5); Hematocrit 33.6 % (37-47); Hemoglobin 10.9 g/dL (12.0-15.0); Lymphocyte # 0.95 X10^3/ul (4.0); Lymphocyte % 26.4 % (19-41); Mean Corp Hgb Conc 32.4 g/dL (32-36); Mean Corpuscular Hgb 27.9 pg (27.0-32.0); Mean Corpuscular Volume 86.2 fL (81-99); Mean Platelet Vol. 11.3 fl (6.2-12.0); Monocyte# 0.27 X10^3/uL; Monocyte% 7.5 % (0-10); NRBC Flagged by Analyzer 0 % (0-5); Neutrophil # 2.28 X10^3/uL (2.7-7.7); Neutrophil % 63.3 % (47-70); Platelet Count 175 K/mm3 (150-450); RBC Distribution Width CV 13.2 % (11.6-14.6); RBC Distribution Width SD 40.8 fl (35.1-43.9); White Blood Count 3.6 K/mm3 (4.4-11.0)
[2019-10-18 14:15] LABS: Vitamin D,25 Hydroxy 37.7 ng/mL
[2019-10-18 14:22] LABS: Albumin, Serum 3.6 g/dL (3.2-5.0); BUN 9 mg/dL (7-18); BUN/Creat Ratio 13.2 RATIO (10-20); Creatinine, Serum 0.68 mg/dL (0.55-1.02); EST Glomerular Filtration Rate 109 mL/min (>60); Est Glom Filt Rate - Afr Amer 132 mL/min (>60); Globulin 3.6 g/dL (2.2-4.2); Glucose 84 mg/dL (74-106); Protein, Total 7.2 g/dL (6.4-8.2)
[2019-10-18 14:23] LABS: AST(SGOT) 13 U/L (15-37); Alanine Aminotransfer ALT/SGPT 10 U/L (13-56); Alkaline Phosphatase 57 U/L (45-117); Anion Gap 4 (5-15); Bilirubin, Direct 0.13 mg/dL (0.00-0.30); Calcium,Total 8.3 mg/dL (8.5-10.1); Chloride 108 mmol/L (98-107); Sodium Level 141 mmol/L (136-145); Thyroid Stim Hormone (TSH) 2.07 uIU/mL (0.358-3.74)
[2019-10-18 14:24] LABS: Valproic Acid (Depakene) Level 60 ug/mL (50-100)
== END ==
PROVIDERS: PCP Nurse Practitioner Family; Referring Provider Psychiatry & Neurology Psychiatry; Visit Provider Psychiatry & Neurology Psychiatry
DX: F33.1 Major depressive disorder, recurrent, moderate (principal); E88.81 Metabolic syndrome and other insulin resistance; Z51.81 Encounter for therapeutic drug level monitoring; Z79.899 Other long term (current) drug therapy
CPT/HCPCS: 36415; 80053; 80164; 82248; 82306; 84443; 85025